=== PATIENT | female | born 1995 | race Caucasian/White ===

== ENCOUNTER 2017-10-11 17:19 | Emergency (ER) | payer MEDICAID, SELFPAY ==
[2017-10-11 17:42] VITALS: BP 150/90; PULSE 86; RESP 20; TEMP 36.9; O2SAT 99; BMI 61.8
--- NOTE | 2017-10-11 18:01 | HMH.EDUTC ---
[facility] [place] Disposition Clinical Impression: Gastroenteritis Disposition: Home, Self-Care Condition on Discharge: Good Instructions: DI for Vomiting -- Adult, Diarrhea, DI for Nausea -- Adult, Loperamide Additional Instructions: ? Drink extra fluids with and between meals. If you have difficulty drinking, try very small amounts of water or suck on ice chips. ? Avoid fruit juices, as these do not replace minerals and can actually increase diarrhea. ? Children and adults can use sports drinks to replenish electrolytes. Younger children and infants should use products formulated for children, like oral rehydration solutions. ? Eat food in small amounts and let your stomach recover. ? Get lots of rest. You may feel tired or weak. ? Check with your doctor before taking medications or giving them to children. Never give aspirin to children or teenagers with a viral illness. This can cause Fred syndrome, a potentially life-threatening condition. Follow up with family doctor after collecting stool specimen and taking to lab for results Straight to ER if any life threatening symptom Prescriptions: Dicyclomine HCl [Bentyl 10mg capsule] 10 mg PO QID #20 cap Ondansetron [Zofran 4mg ODT] 4 mg PO Q8H #12 tab.rapdis Referrals: Albin Long MD [Primary Care Provider] - (24-48 hours or sooner if no improvement in symptoms) Forms: Work/School Release Time of Disposition: 18:22 Medical Decision Making - Medical Records Medical records reviewed: Yes: I reviewed the patient's medical records. - Bahman Inquiry Pt receiving controlled substance: No Bahman was queried for this patient: No Vital Signs: 10/11/17 17:42 Temperature 98.5 F Temperature Source Temporal Artery Scan Pulse Rate [Right] 86 Respiratory Rate 20 Blood Pressure [Right Arm] 150/90 Blood Pressure Mean [Right Arm] 110 Blood Pressure Source [Right Arm] Automatic Cuff Blood Pressure Position [Right Arm] Sitting 02 Sat by Pulse Oximetry 99 Oxygen Delivery Method Room Air - Reevaluation(s) Time: 18:16 Reevaluation #1: Patient give out patient order along with collection cup to collect loose stool and bring to lab advised her to then follow up with family doctor 24-48 hours after giving to lab for results. Patient advised for next 24 hours no fried or spicy foods Prefer her to drink gatoraid for next 24 hours to rehydrate her body then progress to brat diet for 24 hours then slowely intregrated foods. [facility] [place] HPI - General Stated complaint: v/d Time Seen by Provider: 10/11/17 18:00 Mode of Arrival: Ambulatory Source of Information: Patient Limitations: No Limitations Description of Symptoms (Recalled from Triage Doc. 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 - Related Data Previous Rx's Medication Instructions Recorded Dicyclomine HCl [Bentyl 10mg 10 mg PO QID #20 cap 10/11/17 capsule] Ondansetron [Zofran 4mg ODT] 4 mg PO Q8H #12 tab.rapdis 10/11/17 Allergies Allergy/AdvReac Type Severity Reaction Status Date / Time No Known Allergies Allergy Verified 10/11/17 17:45 - Worker's Comp Is this a Worker's Comp case?: No [facility] History I have reviewed the patient's past medical history: Yes - Social History Alcohol Intake: never - Psychiatric History Expresses thoughts of harming self/others: None Suicide Plan Description: No Plan ROS Obtained: Yes All systems reviewed & no additional co
--- NOTE | 2017-10-11 18:13 | ED_ITS ---
[facility] [place] Disposition Clinical Impression: Gastroenteritis Disposition: Home, Self-Care Condition on Discharge: Good Instructions: DI for Vomiting -- Adult, Diarrhea, DI for Nausea -- Adult, Loperamide Additional Instructions: ? Drink extra fluids with and between meals. If you have difficulty drinking, try very small amounts of water or suck on ice chips. ? Avoid fruit juices, as these do not replace minerals and can actually increase diarrhea. ? Children and adults can use sports drinks to replenish electrolytes. Younger children and infants should use products formulated for children, like oral rehydration solutions. ? Eat food in small amounts and let your stomach recover. ? Get lots of rest. You may feel tired or weak. ? Check with your doctor before taking medications or giving them to children. Never give aspirin to children or teenagers with a viral illness. This can cause Felecia?s syndrome, a potentially life-threatening condition. Follow up with family doctor after collecting stool specimen and taking to lab for results Straight to ER if any life threatening symptom Prescriptions: Dicyclomine HCl [Bentyl 10mg capsule] 10 mg PO QID #20 cap Ondansetron [Zofran 4mg ODT] 4 mg PO Q8H #12 tab.rapdis Referrals: Albin Long MD [Primary Care Provider] - (24-48 hours or sooner if no improvement in symptoms) Forms: Work/School Release Time of Disposition: 18:22 Medical Decision Making - Medical Records Medical records reviewed: Yes: I reviewed the patient's medical records. - Bahman Inquiry Pt receiving controlled substance: No Bahman was queried for this patient: No Vital Signs: 10/11/17 17:42 Temperature 98.5 F Temperature Source Temporal Artery Scan Pulse Rate [Right] 86 Respiratory Rate 20 Blood Pressure [Right Arm] 150/90 Blood Pressure Mean [Right Arm] 110 Blood Pressure Source [Right Arm] Automatic Cuff Blood Pressure Position [Right Arm] Sitting 02 Sat by Pulse Oximetry 99 Oxygen Delivery Method Room Air - Reevaluation(s) Time: 18:16 Reevaluation #1: Patient give out patient order along with collection cup to collect loose stool and bring to lab advised her to then follow up with family doctor 24-48 hours after giving to lab for results. Patient advised for next 24 hours no fried or spicy foods Prefer her to drink gatoraid for next 24 hours to rehydrate her body then progress to brat diet for 24 hours then slowely intregrated foods. [facility] [place] HPI - General Stated complaint: v/d Time Seen by Provider: 10/11/17 18:00 Mode of Arrival: Ambulatory Source of Information: Patient Limitations: No Limitations Description of Symptoms (Recalled from Triage Doc. 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
[2017-10-11 18:25] VITALS: BP 150/90; PULSE 86; RESP 20; TEMP 36.9
== END 2017-10-11 18:31 | disposition home or self-care (01) ==
PROVIDERS: Emergency Provider Nurse Practitioner; Family Provider Family Medicine; PCP Family Medicine
DX: K52.9 Noninfective gastroenteritis and colitis, unspecified (principal)
CPT/HCPCS: 99201

== ENCOUNTER 2017-10-12 22:05 | Emergency (ER) | payer MEDICAID, SELFPAY ==
[2017-10-12 22:10] VITALS: BP 164/97; PULSE 109; RESP 16; TEMP 36.7; O2SAT 96; BMI 61.3
--- NOTE | 2017-10-12 22:19 | HMH.EDNVD ---
ED Disposition Clinical Impression: Abdominal pain Qualifiers: Abdominal location: right upper quadrant Qualified Code(s): R10.11 - Right upper quadrant pain Disposition: Home, Self-Care Condition on Discharge: Good Instructions: DI for Nausea -- Adult Additional Instructions: call pcp for follow up and consider gb eval Referrals: Albin Long MD [Primary Care Provider] - - Critical Care Critical Care Time: No Attestation: On , the high probability of a clinically significant, sudden or life threatening deterioration of the following system(s) required my full and direct attention, intervention and personal management. The time I documented below is in addition to time spent performing reported procedures but includes the following listed in this critical care notation. Medical Decision Making - Medical Records Medical records reviewed: Yes: I reviewed the patient's medical records. - Bahman Inquiry Pt receiving controlled substance: No Vital Signs: 10/12/17 22:10 10/12/17 23:25 Temperature 98.1 F Temperature Source Oral Pulse Rate [Right Brachial] 109 H 87 Respiratory Rate 16 16 Blood Pressure [Right Arm] 164/97 144/72 Blood Pressure Mean [Right Arm] 119 96 02 Sat by Pulse Oximetry 96 99 Oxygen Delivery Method Room Air Room Air - Lab Data Lab results reviewed: Yes: I reviewed the patient's lab results. Lab Results 10/12/17 22:30: WBC 9.0, RBC 4.94, Hgb 13.4, Hct 42.7, MCV 86.4, MCH 27.1, MCHC 31.4 L, RDW 13.2, Plt Count 348, MPV 7.5, Neut % (Auto) 66.4, Lymph % (Auto) 24.4, [place] % (Auto) 5.4, Eos % (Auto) 3.6, Baso % (Auto) 0.2, Neut # (Auto) 6.0, Lymph # (Auto) 2.2, [place] # (Auto) 0.5, Eos # (Auto) 0.3, Baso # (Auto) 0.0 10/12/17 22:30: Sodium 138, Potassium 4.1, Chloride 104, Carbon Dioxide 28, Anion Gap 10.1, BUN 14, Creatinine 0.57, Estimated Creat Clear 146, Estimated GFR 134, Est GFR ( Amer) 162, Glucose 89, Calcium 8.9, Total Bilirubin 0.1 L, AST 15, ALT 18, Alkaline Phosphatase 92, Total Protein 7.1, Albumin 3.4, Globulin 3.7 H, Albumin/Globulin Ratio 0.9 L, Amylase 32, Lipase 151 10/12/17 22:40: Urine Color Yellow, Urine Appearance Clear, Urine pH 6.0, Ur Specific [place] 1.025, Urine Protein Negative, Urine Glucose (UA) Negative, Urine Ketones Negative, Urine Blood Negative, Urine Nitrate Negative, Urine Bilirubin Negative, Urine Urobilinogen 0.2, Ur Leukocyte Esterase Negative, Urine WBC 3-5, Ur Squamous Epith Cells Occasional, Urine Bacteria Trace 10/12/17 22:40: Urine HCG, Qual Negative Result diagrams: 10/12/17 22:30 10/12/17 22:30 Orders (Tests/Meds): ED MEDICATIONS Discontinued Medications Generic Name Dose Route Start Last Admin Trade Name Freq PRN Reason Stop Dose Admin Sodium Chloride 1,000 mls @ 999 mls/hr 10/12/17 22:30 10/12/17 22:33 Sod Chlor 0.9% 1000ml Bag IV 10/12/17 23:30 999 mls/hr .Q1H1M NUNO Administration Ketorolac Tromethamine 30 mg 10/12/17 22:29 10/12/17 22:33 Toradol 30mg/Ml Vial IV 10/12/17 22:30 30 mg ONCE ONE Administration Ondansetron HCl 4 mg 10/12/17 22:29 10/12/17 22:33 Zofran 4mg/2ml Vial IV 10/12/17 22:30 4 mg ONCE ONE Administration ORDERS Category Date Time Status CT abdomen wo con Stat Cat Scan 10/12/17 22:22 Taken - CT Data CT Scan: Abdomen, Pelvis Time Received: 23:[address] Reviewed: Yes: I have viewed the radiologist's interpretation Preliminary Findings: Normal/NAD Nausea/Vomiting/Diarrhea HPI - General Chief complaint: Nausea/Vomiting/Diarrhea Stated complaint: Right Side Pain and vomiting Time Seen by Provider: 10/12/17 22:19 Mode of Arrival: Ambulatory Source of Information: Patient, Relative, Medical Record Limitations: No Limitations Description of Symptoms (Recalled from ER Triage Doc. by RN): N/V WITH RUQ PAIN THAT STATRED YESTERDAY - History of Present Illness HPI Narrative: tender rt upper abd pain with nausea MD complaint: nausea, vomiting, abdominal
--- NOTE | 2017-10-12 22:22 | CT_ITS ---
CT abdomen wo con CLINICAL INDICATION: Right upper quadrant pain ITS.REASON: PAIN ORDERING PHYSICIAN: Charlie Mejia MD PATIENT AGE: 22 years COMPARISON: None TECHNIQUE: Axial images obtained with sagittal and coronal reformats. All CT scans at the facility use one or more dose reduction, viz: automated exposure control; ma/kV adjustment per patient size (including targeted exams where dose is matched to indication; i.e. head); or iterative reconstruction technique. PROCEDURE: Oral Contrast: None IV Contrast: None . FINDINGS: Lung bases are clear. The liver, spleen, adrenal glands, pancreas and kidneys have an unremarkable unenhanced CT appearance. Gallbladder is decompressed. No radio opaque stones are evident. No intestinal obstruction or free air. No evidence of appendicitis or diverticulitis. No pelvic mass or focal inflammatory change or abnormal fluid collection. No acute bony anomalies. IMPRESSION: No acute abdominal or pelvic findings.
[2017-10-12 22:43] LABS: Basophils % 0.2 % (0.1-2.0); Eosinophils # 0.3 K/mm3 (0.0-0.4); Eosinophils % 3.6 % (0.1-12.0); Hematocrit 42.7 % (37.0-47.0); Hemoglobin 13.4 g/dL (12.2-16.2); Lymphocytes # 2.2 K/mm3 (0.7-4.5); Lymphocytes % 24.4 K/mm3 (10-50); Mean Corpuscular HGB Conc 31.4 g/dL (31.8-35.4); Mean Corpuscular Hemoglobin 27.1 pg (27.0-31.2); Mean Corpuscular Volume 86.4 fl (81-99); Mean Platelet Volume 7.5 fl (7.4-10.4); Monocytes # 0.5 K/mm3 (0.1-1.0); Monocytes % 5.4 % (1.7-9.3); Neutrophils % 66.4 % (37.0-80.0); Platelet Count 348 K/mm3 (142-424); Red Blood Count 4.94 M/mm3 (4.20-5.40); Red Cell Distribution Width 13.2 % (11.5-17.5)
[2017-10-12 22:48] LABS: Appearance,Urine CLEAR (Clear); Bilirubin,Urine Negative (Negative); Blood, Urine Negative (Negative); Color,Urine YELLOW (Yellow); Glucose,Urine (UA) Negative (Negative); Ketones,Urine Negative (Negative); Leukocyte Esterase,Urine Negative (Negative); Microscopic, Urine URINE MICROSCOPIC (MICROSCOPIC); Nitrate,Urine Negative (Negative); Protein,Urine Negative (Negative); Specific Gravity, Urine 1.025 (1.005-1.030); Urobilinogen,Urine 0.2 EU/dl (0.2)
[2017-10-12 22:49] LABS: Urine Pregnancy, HCG Qual. Negative (Negative)
--- NOTE | 2017-10-12 22:57 | PC.NURSE ---
PT TO CT AT THIS TIME
[2017-10-12 23:00] LABS: Alanine Aminotransferase 18 U/L (12-78); Albumin Level 3.4 gm/dL (3.4-5.0); Albumin/Globulin Ratio 0.9 (1.1-1.8); Alkaline Phosphatase 92 U/L (46-116); Amylase 32 U/L (25-125); Anion Gap 10.1 mEq/L (5-15); Aspartate Amino Transferase 15 U/L (15-37); Bilirubin,Total 0.1 mg/dL (0.2-1.0); Blood Urea Nitrogen 14 mg/dL (7-18); Calcium 8.9 mg/dL (8.5-10.1); Carbon Dioxide 28 mmol/L (21.0-32.0); Chloride 104 mmol/L (98-107); Creatinine Clearance Estimated 146 mL/min (0-300); Creatinine,Serum 0.57 mg/dL (0.55-1.02); Estimated Glomerular Filt Rate 134 ml/min (>60); GFR (African American) 162 ML/MIN (>60); Globulin 3.7 gm/dl (1.3-3.2); Glucose 89 mg/dL (74-106); Lipase 151 u/L (73-393); Potassium 4.1 mmoL/L (3.5-5.1); Sodium 138 mmol/L (136-145); Total Protein,Serum 7.1 gm/dL (6.4-8.2)
--- NOTE | 2017-10-12 23:13 | PC.NURSE ---
PT BACK FROM CT AT THIS TIME.
[2017-10-12 23:17] LABS: Bacteria,Urine Trace /lpf; Squamous Epithelial Cell,Urine Occasional #/hpf (0-5)
[2017-10-12 23:25] VITALS: BP 144/72; PULSE 87; RESP 16; O2SAT 99
[2017-10-13 00:09] VITALS: BP 134/68; PULSE 68; RESP 14; TEMP 37.1; O2SAT 99
== END 2017-10-13 00:11 | disposition home or self-care (01) ==
PROVIDERS: Emergency Provider Emergency Medicine; Family Provider Family Medicine; PCP Family Medicine
DX: R10.11 Right upper quadrant pain (principal); F41.8 Other specified anxiety disorders
CPT/HCPCS: 74150; 80053; 81001; 81025; 82150; 83690; 85025; 96365; 96375; 99283; J2405

== ENCOUNTER → 2017-12-07 11:30 | Outpatient (CLI) | payer MEDICAID, SELFPAY ==
--- NOTE | 2017-12-07 11:38 | US_ITS ---
US abdomen limited HISTORY: Right upper quadrant pain with vomiting ITS.REASON: BILIARY COLIC ORDERING PHYSICIAN: Albin Long MD PATIENT AGE: 22 years COMPARISON: None FINDINGS: Pancreas: Unremarkable. Liver: Unremarkable. Right kidney: Unremarkable. Gallbladder: Unremarkable. No stones, gallbladder wall thickening, pericholecystic fluid, or biliary dilatation. Common bile duct is normal at 2 mm. IMPRESSION: Negative right upper quadrant ultrasound
== END ==
PROVIDERS: PCP Family Medicine; Visit Provider Family Medicine
DX: K80.50 Calculus of bile duct without cholangitis or cholecystitis without obstruction (principal)
CPT/HCPCS: 76705

== ENCOUNTER 2020-06-19 19:19 | Emergency (ER) | payer MEDICAID, SELFPAY ==
[2020-06-19 19:29] VITALS: BP 147/91; PULSE 87; RESP 18; TEMP 36.7; O2SAT 99; BMI 64.8
--- NOTE | 2020-06-19 19:30 | XR_ITS ---
PROCEDURE: XR WRIST RT MIN 3V CLINICAL INDICATION: FALL Pain COMPARISON: CR WRR3 WRIST-3 VIEWS-RT from 12/20/2016 FINDINGS: No fracture or dislocation. No lytic or blastic change. There is normal mineralization. There is mild prominence the space between the scaphoid and lunate Other findings:None. IMPRESSION: Mild prominence of the scapholunate space which could be seen with ligamentous injury. Please correlate with findings. Dictated by: Chago Gong MD 06/20/2020 05:57 Chago Gong MD in [facility] 06/20/2020 05:57
--- NOTE | 2020-06-19 19:30 | XR_ITS ---
PROCEDURE: XR HAND RT MIN 3V CLINICAL INDICATION: FALL Pain COMPARISON: No exams were available for comparison FINDINGS: No fracture or dislocation. No lytic or blastic change. There is normal mineralization. The joint spaces are well-preserved. No significant degenerative/arthritic changes. No erosive changes evident. Other findings:None. IMPRESSION: No acute findings. Dictated by: Chago Gong MD 06/20/2020 05:58 Chago Gong MD in [facility] 06/20/2020 05:58
--- NOTE | 2020-06-19 19:30 | XR_ITS ---
PROCEDURE: XR FOREARM RT 2V CLINICAL INDICATION: FALL Posttraumatic pain COMPARISON: No exams were available for comparison FINDINGS: No fracture or dislocation. No lytic or blastic change. There is normal mineralization. The joint spaces are well-preserved. No significant degenerative/arthritic changes. No erosive changes evident. Other findings:None. IMPRESSION: No acute findings. Dictated by: Chago Gong MD 06/20/2020 05:56 Chago Gong MD in [facility] 06/20/2020 05:56
--- NOTE | 2020-06-19 20:21 | HMH.EDUTC ---
[facility] [place] Disposition Clinical Impression: Right wrist sprain Qualifiers: Encounter type: initial encounter Qualified Code(s): S63.501A - Unspecified sprain of right wrist, initial encounter Sprain of right hand Qualifiers: Encounter type: initial encounter Qualified Code(s): S63.91XA - Sprain of unspecified part of right wrist and hand, initial encounter Disposition: Home, Self-Care Condition on Discharge: Good Instructions: Wrist Sprain, DI for Wrist Sprain Additional Instructions: Rest the extremity, apply ice for 15 minutes as tolerated three or four times per day, Elevate the extremity as tolerated while you are resting. Take ibuprofen for pain. I sent in a prescription to your pharmacy. Follow up with Dr. Walker (orthopedics). Sometimes there can be fractures that don't show up well on the first set of x-rays. So, you should follow up if you continue to have symptoms. I put in a referral but you need to call his office and schedule an appointment. Follow up with your regular doctor. GO TO THE ER FOR ANY WORSENING SYMPTOMS Prescriptions: Ibuprofen [Ibuprofen 600mg Tablet] 600 mg PO Q6HP PRN #30 tab PRN Reason: Mild Pain Transmission Status: Received by [facility] #[id number] Referrals: Radha Martinez [Primary Care Provider] - Garfield Walker MD [Staff Physician] - Time of Disposition: 20:27 Medical Decision Making - Medical Records Medical records reviewed: No: I reviewed the patient's medical records. - Bahman Inquiry Pt receiving controlled substance: No Vital Signs: 06/19/20 19:29 06/19/20 20:40 Temperature 98.1 F 98.1 F Temperature Source Oral Oral Pulse Rate 87 Pulse Rate [Radial] 87 Respiratory Rate 18 18 Blood Pressure 147/91 H Blood Pressure [Right Arm] 147/91 H Blood Pressure Mean [Right Arm] 109 Blood Pressure Source Automatic Cuff Blood Pressure Source [Right Arm] Automatic Cuff Blood Pressure Position Sitting Blood Pressure Position [Right Arm] Sitting 02 Sat by Pulse Oximetry 99 Oxygen Delivery Method Room Air Room Air Orders (Tests/Meds): ORDERS Category Date Time Status XR forearm RT 2V Stat Exams 06/19/20 19:30 Taken XR hand RT min 3V Stat Exams 06/19/20 19:30 Taken XR wrist RT min 3V Stat Exams 06/19/20 19:30 Taken [facility] [place] HPI - General Stated complaint: AO 06/19 1900 FELL INJURED R hAND Time Seen by Provider: 06/19/20 20:21 Mode of Arrival: Ambulatory Source of Information: Patient Limitations: No Limitations Description of Symptoms (Recalled from Triage Doc. 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 She came down on her right hand and wrist. Since then she has been having right wrist and forearm pain. The pain is worse with moving the wrist and hand. - Related Data Home Medications Medication Instructions Recorded Confirmed sertraline 50 mg tablet 100 mg PO DAILY tab 05/14/18 03/13/19 trazodone 100 mg tablet 100 mg PO DAILY 05/14/18 03/13/19 Divalproex Sodium [Depakote 250mg 250 mg PO DAILY 02/05/19 03/13/19 (Delayed-Release) tablet] Naproxen [Naprosyn 500mg tablet] 500 mg PO BID 03/13/19 03/13/19 Previous Rx's Medication Instructions Recorded Azithromycin [Z-Jameel 250mg Tab*] 250 mg PO UD DOSE PK #6 tab 05/29/19 Brompheniramine/Pseudoephed/Dm 5 ml PO Q6HP PRN #240 syrup 05/29/19 [Bromfed Dm Cough Syrup] predniSONE [Prednisone 20mg 20 mg PO BID 4 Days #8 tab 05/29/19 Tab] Ondansetron [Zofran 4mg ODT] 4 mg PO Q8HP PRN #20 tab.rapdis 06/05/19 Ibuprofen [Ibuprofen 600mg 600 mg PO Q6HP PRN #30 tab 06/19/20 Tablet] Allergies Allergy/
[2020-06-19 20:40] VITALS: BP 147/91; PULSE 87; RESP 18; TEMP 36.7; O2SAT 99
== END 2020-06-19 20:41 | disposition home or self-care (01) ==
PROVIDERS: Emergency Provider Nurse Practitioner Family; PCP Pediatrics
DX: S63.501A Unspecified sprain of right wrist, initial encounter (principal); W10.9XXA Fall (on) (from) unspecified stairs and steps, initial encounter; Y92.9 Unspecified place or not applicable; Z79.899 Other long term (current) drug therapy; F12.10 Cannabis abuse, uncomplicated
CPT/HCPCS: 73090; 73110; 73130; 99201

== ENCOUNTER 2020-08-03 12:06 | Emergency (ER) | payer MEDICAID, SELFPAY ==
[2020-08-03 12:25] VITALS: BP 146/88; PULSE 89; RESP 14; TEMP 36.4; O2SAT 97; BMI 65.3
--- NOTE | 2020-08-03 12:40 | HMH.EDUTC ---
[facility] [place] Clinical Impression: Encounter for laboratory testing for COVID-19 virus Disposition: Home, Self-Care Condition on Discharge: Good Instructions: DI for COVID-19 (Suspected or Confirmed ), Coronavirus Disease 2019, Preventing the Spread of Coronavirus Discharge Instructions Additional Instructions: *Monitor Temp, Over the counter Motrin or Tylenol as directed/as needed Tylenol every 4 hours and Motrin every 6 hours (as long as your family doctor has told you that you can take it) for fever or pain. and straight to ER if unable to lower temp less than 101.0 after medication given Follow up IMMEDIATELY for new or worsening symptoms or no Noticeable improvement over the next 48-72 hours. 911 for difficulty breathing or swallowing You were tested for today for COVID19 your test result should be back in the next 24-48 hours, you may call to the [facility] to see if your test results are back in the next 48 hours [phone] [facility] hours are 9am-9pm You was given a handout with instructions for Self Quarantine and Self isolation for while you wait on test results and what to do if they are positive If you are positive the Health Dept will be contacting you also Referrals: PCP,No [Primary Care Provider] - As needed Forms: Work/School Release Time of Disposition: 12:45 Medical Decision Making - Bahman Inquiry Pt receiving controlled substance: No Bahman was queried for this patient: No Vital Signs: 08/03/20 12:25 Temperature 97.6 F Temperature Source Oral Pulse Rate [Right Brachial] 89 Respiratory Rate 14 Blood Pressure [Right Arm] 146/88 H Blood Pressure Mean [Right Arm] 107 Blood Pressure Source [Right Arm] Automatic Cuff Blood Pressure Position [Right Arm] Sitting 02 Sat by Pulse Oximetry 97 Oxygen Delivery Method Room Air Orders (Tests/Meds): ORDERS Category Date Time Status Covid-19 Nasal PCR Sendout P&C Routine Lab 08/03/20 12:20 Received [facility] [place] - General Stated complaint: covid test Time Seen by Provider: 08/03/20 12:41 Mode of Arrival: Ambulatory Source of Information: Patient Limitations: No Limitations Description of Symptoms (Recalled from Triage Doc. by RN): PATIENT NEEDING COVID TEST FOR WORK D/T EXPOSURE. DENIES SYMPTOMS HEENT Symptoms (Recalled from RN notes): No Resp Symptoms (Recalled from RN notes): No Skin Symptoms (Recalled from RN notes): No MS Symptoms (Recalled from RN notes): No Functional Status (Recalled from RN notes): WNL - History of Present Illness Provider Complaint: Patient state that her roommate recently tested positive for COVID States that she has stayed away from her but her work wanted her to get tested for COVID before returning to work States that she is not having any symptoms - Related Data Home Medications Medication Instructions Recorded Confirmed sertraline 50 mg tablet 100 mg PO DAILY tab 05/14/18 03/13/19 trazodone 100 mg tablet 100 mg PO DAILY 05/14/18 03/13/19 Divalproex Sodium [Depakote 250mg 250 mg PO DAILY 02/05/19 03/13/19 (Delayed-Release) tablet] Naproxen [Naprosyn 500mg tablet] 500 mg PO BID 03/13/19 03/13/19 Previous Rx's Medication Instructions Recorded Azithromycin [Z-Jameel 250mg Tab*] 250 mg PO UD DOSE PK #6 tab 05/29/19 Brompheniramine/Pseudoephed/Dm 5 ml PO Q6HP PRN #240 syrup 05/29/19 [Bromfed Dm Cough Syrup] predniSONE [Prednisone 20mg 20 mg PO BID 4 Days #8 tab 05/29/19 Tab] Ondansetron [Zofran 4mg ODT] 4 mg PO Q8HP PRN #20 tab.rapdis 06/05/19 Ibuprofen [Ibuprofen 600mg 600 mg PO Q6HP PRN #30 tab 06/19/20 Tablet] Allergies Allergy/AdvReac Type Severity Reaction Status Date / Time No Known Allergies Allergy Verified 03/13/19 02:42 - Worker's Comp Is this a Worker's Comp case?: No [facility] History - Hepatitis A Screen Drug use history?: No High risk sexual behaviors?: No History of sexually transmitted infection?: No Currently employed?: No Childcare worker?: No Do you
[2020-08-03 12:52] VITALS: BP 146/88; PULSE 89; RESP 14; TEMP 36.4; O2SAT 97
[2020-08-04 09:50] LABS: Covid-19 Nasal PCR Sendout P&C NEGATIVE
== END 2020-08-03 13:03 | disposition home or self-care (01) ==
PROVIDERS: Emergency Provider Nurse Practitioner
DX: Z20.822 Contact with and (suspected) exposure to COVID-19 (principal); Z87.891 Personal history of nicotine dependence
CPT/HCPCS: 99202; G0463; U0004

== ENCOUNTER 2020-11-15 19:58 | Emergency (ER) | payer MEDICAID, SELFPAY ==
[2020-11-15 20:10] VITALS: BP 149/90; PULSE 87; RESP 17; TEMP 37; O2SAT 98; BMI 64.5
--- NOTE | 2020-11-15 20:36 | HMH.EDUTC ---
[facility] [place] Clinical Impression: Low back pain with sciatica Qualifiers: Chronicity: unspecified Back pain laterality: left Sciatica laterality: sciatica of left side Qualified Code(s): M54.42 - Lumbago with sciatica, left side Disposition: Home, Self-Care Condition on Discharge: Good Instructions: DI for Low Back Pain, DI for Sciatica, DI for Back Pain With Sciatica Additional Instructions: *Ibuprofen as directed on package with meal as needed for pain/inflammation if your Doctor has told you that you can take it *Not additional anti-inflammatory like motrin, aleve, advil with the above amount of ibuprofen. You can still take Tylenol every 4 hours as needed if you need something else for pain *Ice 20 minutes every 2 hours for the first 48 hours after the initial injury followed by moist heat every 20 minutes 3-4 times a day to affected area *Muscle relaxer every 8 hours as needed for muscle spasms but remember, it WILL cause drowsiness You cannot take it and drive, operate machinery or care for small children. *Keep this area active, no movement leads to more stiffness, However take it easy and avoid heavy lifting pushing or pulling *Follow up with you family doctor if no improvement for further treatment Prescriptions: methylPREDNISolone [Medrol 4mg tab] 4 mg PO DIRECTED #21 tab Transmission Status: Received by [facility] #[id number] methocarbamoL [Methocarbamol 500mg Tablet] 500 mg PO BID PRN #10 tab PRN Reason: Muscle Spasm Transmission Status: Received by [facility] #[id number] Referrals: Cruz Sosa [Primary Care Provider] - As needed Time of Disposition: 21:04 Medical Decision Making - Bahman Inquiry Pt receiving controlled substance: No Bahman was queried for this patient: No Vital Signs: 11/15/20 20:10 11/15/20 21:01 Temperature 98.6 F 98.6 F Temperature Source Oral Pulse Rate 87 Pulse Rate [Right Brachial] 87 Respiratory Rate 17 17 Blood Pressure 149/90 H Blood Pressure [Right Arm] 149/90 H Blood Pressure Mean [Right Arm] 109 Blood Pressure Source [Right Arm] Automatic Cuff Blood Pressure Position [Right Arm] Sitting 02 Sat by Pulse Oximetry 98 Oxygen Delivery Method Room Air Orders (Tests/Meds): ED MEDICATIONS Discontinued Medications Generic Name Dose Route Start Last Admin Trade Name Freq PRN Reason Stop Dose Admin Methylprednisolone Sodium Succinate 125 mg 11/15/20 20:44 11/15/20 20:50 Methylprednisolone Sod Succ 125mg Vial IM 11/15/20 20:45 125 mg ONCE ONE Administration Medical Decision Narrative: Patient denies chance of states that she has an IUD Reports that she has taken soluMedrol in the past without complication or reactions [facility] [place] - General Stated complaint: lower back hurts Time Seen by Provider: 11/15/20 20:36 Mode of Arrival: Ambulatory Source of Information: Patient Limitations: No Limitations Description of Symptoms (Recalled from Triage Doc. by RN): PATIENT C/O LOWER BACK PAIN THAT RADIATES DOWN LEFT LEG SINCE YESTERDAY HEENT Symptoms (Recalled from RN notes): No Resp Symptoms (Recalled from RN notes): No Skin Symptoms (Recalled from RN notes): No MS Symptoms (Recalled from RN notes): Yes Functional Status (Recalled from RN notes): WNL - History of Present Illness Provider Complaint: Patient state that she has had sciatica in the past States that for the last several days she has been having pain in her left lower back that is radiating down her left buttock area into left upper leg State that she has been taking over the counter Motrin but not helping much today States that tonight she was still having achy like pain shooting down into her leg so she came in Denies loss of control of bowel or bladder - Related Data Previous Rx's Medication Instructions Recorded methocarbamoL [Methocarbamol 500mg 500 mg PO BID PRN #10 tab 11/15/20 Tablet] methylPREDNISolone [Medrol 4mg 4 mg PO DIRECTED
[2020-11-15 21:01] VITALS: BP 149/90; PULSE 87; RESP 17; TEMP 37; O2SAT 98
== END 2020-11-15 21:05 | disposition home or self-care (01) ==
PROVIDERS: Emergency Provider Nurse Practitioner; PCP Pediatrics
DX: M54.42 Lumbago with sciatica, left side (principal)
CPT/HCPCS: 99202; G0463

== ENCOUNTER 2021-02-04 13:56 | Emergency (ER) | payer MEDICAID, SELFPAY ==
[2021-02-04 14:51] VITALS: BP 157/94; PULSE 111; RESP 17; TEMP 36.6; O2SAT 100; BMI 69.4
--- NOTE | 2021-02-04 15:21 | HMH.EDUTC ---
[facility] – [place] Clinical Impression: Sinusitis Qualifiers: Sinusitis location: unspecified location Chronicity: acute Recurrence: non-recurrent Qualified Code(s): J01.90 - Acute sinusitis, unspecified Disposition: Home, Self-Care Condition on Discharge: Good Instructions: Sinusitis, DI for Sinusitis Additional Instructions: Drink plenty of fluids. Take tylenol or ibuprofen for pain or fever. Take the medications as directed. Follow up with your regular doctor. GO TO THE ER FOR ANY WORSENING SYMPTOMS Prescriptions: Promethazine/Dextromethorphan [Promethazine-Dm Syrup] 5 ml PO Q6HP PRN #240 syrup PRN Reason: Cough Transmission Status: Received by [facility] #[id number] Amoxicillin/Potassium Clav [Augmentin 875-125 Tablet] 1 tab PO Q12H 10 Days #20 tab Transmission Status: Received by [facility] # methylPREDNISolone [Medrol] 4 mg PO DIRECTED 6 Days #21 tab.[email or web address] Transmission Status: Received by [facility] # Referrals: Cruz Sosa [Primary Care Provider] - Forms: Work/School Release Time of Disposition: 15:24 Medical Decision Making - Medical Records Medical records reviewed: No: I reviewed the patient's medical records. - Bahman Inquiry Pt receiving controlled substance: No Vital Signs: 02/04/21 14:51 02/04/21 15:44 Temperature 98 F 98 F Temperature Source Temporal Artery Scan Pulse Rate 115 H Pulse Rate [Left] 111 H Respiratory Rate 17 18 Blood Pressure 162/92 H Blood Pressure [Right Arm] 157/94 H Blood Pressure Mean [Right Arm] 115 02 Sat by Pulse Oximetry 100 [facility] [place] HPI - General Stated complaint: congestion both ear pain Time Seen by Provider: 02/04/21 15:10 Mode of Arrival: Ambulatory Source of Information: Patient Limitations: No Limitations Description of Symptoms (Recalled from Triage Doc. by RN): pt c/o bilateral ear aches, face tenderness, nasal congestion, and green mucous. she says she has a sinus infection. HEENT Symptoms (Recalled from RN notes): Yes (sinus tenderness, congestion and ear aches.) Resp Symptoms (Recalled from RN notes): No Skin Symptoms (Recalled from RN notes): No MS Symptoms (Recalled from RN notes): No Functional Status (Recalled from RN notes): na - History of Present Illness Provider Complaint: She c/o 3 days of sinus pressure and pain. She states that she has a sinus infection. She gets them kind of frequently. She denies any fever/chills/body aches. - Related Data Previous Rx's Medication Instructions Recorded methocarbamoL [Methocarbamol 500mg 500 mg PO BID PRN #10 tab 11/15/20 Tablet] methylPREDNISolone [Medrol 4mg 4 mg PO DIRECTED #21 tab 11/15/20 tab] Amoxicillin/Potassium Clav 1 tab PO Q12H 10 Days #20 tab 02/04/21 [Augmentin 875-125 Tablet] Promethazine/Dextromethorphan 5 ml PO Q6HP PRN #240 syrup 02/04/21 [Promethazine-Dm Syrup] methylPREDNISolone [Medrol] 4 mg PO DIRECTED 6 Days #21 02/04/21 tab.[email or web address] Allergies Allergy/AdvReac Type Severity Reaction Status Date / Time No Known Allergies Allergy Verified 02/04/21 14:56 - Worker's Comp Is this a Worker's Comp case?: No [facility] History - Hepatitis A Screen Drug use history?: No High risk sexual behaviors?: No History of sexually transmitted infection?: No Currently employed?: No Childcare worker?: No Do you have indoor plumbing?: Yes Do you have electricity?: Yes Attestation statement:: This patient has been screened for Hepatitis A risk factors. I have reviewed the patient's past medical history: Yes 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: Denies:: Cancer, Diabetes Mellitus Type 1, Diabetes Mellitus Type 2, Hypertension, Migraine, MRSA, Seizures Other 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: Reports: Other Laterality Cases: Bilateral: Tonsillectomy Other Surgeries: Yes: Cholecystectomy, Other Amputation: No Fractures: No - Social History Smoking Status: Former smoker Alcohol Intake: never Alcohol Intake Frequency:: a few kristie
[2021-02-04 15:44] VITALS: BP 162/92; PULSE 115; RESP 18; TEMP 36.6
== END 2021-02-04 15:45 | disposition home or self-care (01) ==
LOC: ER 14:01 → UTC 14:07
PROVIDERS: Emergency Provider Nurse Practitioner Family; PCP Pediatrics
DX: J01.90 Acute sinusitis, unspecified (principal); Z87.891 Personal history of nicotine dependence
CPT/HCPCS: 99202; G0463

== ENCOUNTER 2021-06-17 11:24 | Emergency (ER) | payer MEDICAID, SELFPAY ==
[2021-06-17 12:00] VITALS: BP 135/91; PULSE 94; RESP 19; TEMP 37.1; O2SAT 97; BMI 69.4
--- NOTE | 2021-06-17 12:35 | HMH.EDUTC ---
[facility] – [place] Dis[place] Clinical Impression: Vomiting and diarrhea Disposition: Home, Self-Care Condition on Discharge: Good Instructions: Nausea and Vomiting-Adult, Diarrhea, Ondansetron Additional Instructions: Drink extra fluids with and between meals. If you have difficulty drinking, try very small amounts of water or suck on ice chips. ? Avoid fruit juices, as these do not replace minerals and can actually increase diarrhea. ? Children and adults can use sports drinks to replenish electrolytes. Younger children and infants should use products formulated for children, like oral rehydration solutions. ? Eat food in small amounts and let your stomach recover. ? Get lots of rest. You may feel tired or weak. ? No greasy or fried foods for the next 24-48 hours BRAT diet Bananas Rice Apples and [place] ? Make sure to drink plenty of liquids ? Return if needed ? Straight to ER if any life threatening symptoms ? Zofran as prescribed ? You was given an outpatient order for diarrhea panel, please collect specimen and bring back to outpatient lab then call back to the [facility] or follow up with family doctor for results ? Follow up with family doctor in the next 48-72 hours if no improvement or any worsening of symptoms Referrals: Cruz Sosa [Primary Care Provider] - As needed Forms: Work/School Release Time of Disposition: 12:44 Medical Decision Making - Bahman Inquiry Pt receiving controlled substance: No Bahman was queried for this patient: No Vital Signs: 06/17/21 12:00 Temperature 98.7 F Temperature Source Oral Pulse Rate [Right Brachial] 94 H Respiratory Rate 19 Blood Pressure [Right Arm] 135/91 H Blood Pressure Mean [Right Arm] 105 Blood Pressure Source [Right Arm] Automatic Cuff Blood Pressure Position [Right Arm] Sitting 02 Sat by Pulse Oximetry 97 Oxygen Delivery Method Room Air [facility] [place] HPI - General Stated complaint: diarrhea, JONES, congestion Time Seen by Provider: 06/17/21 12:35 Mode of Arrival: Ambulatory Source of Information: Patient Limitations: No Limitations Description of Symptoms (Recalled from Triage Doc. 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: Yes Do you have electricity?: Yes Attestation statement:: This patient has been screened for Hepatitis A risk factors. I have reviewed the patient's past medical history: Yes 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: Denies:: Cancer, Diabetes Mellitus Type 1, Diabetes Mellitus Type 2, Hypertension, Migraine, MRSA, Seizures Other 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: Reports: Other Laterality Cases: Bilateral: Tonsillectomy Other Surgeries: Yes: Cholecystectomy, Other Amputation: No Fractures: No - Social History Smoking Status: Former smoker Alcohol Intake: never Alcohol Intake Frequency:: a few times
[2021-06-17 12:53] VITALS: BP 135/91; PULSE 94; RESP 19; TEMP 37.1; O2SAT 97
== END 2021-06-17 12:57 | disposition home or self-care (01) ==
PROVIDERS: Emergency Provider Nurse Practitioner; PCP Pediatrics
DX: R11.10 Vomiting, unspecified (principal); R19.7 Diarrhea, unspecified; R51.9 Headache, unspecified
CPT/HCPCS: 99202; G0463

== ENCOUNTER → 2021-08-17 15:29 | Outpatient (CLI) | payer MEDICAID, SELFPAY | PROVIDERS: PCP Pediatrics; Visit Provider Nurse Practitioner | DX: Z20.822 Contact with and (suspected) exposure to COVID-19 (principal) | CPT/HCPCS: C9803; U0003; U0005 ==

== ENCOUNTER 2021-09-30 18:37 | Emergency (ER) | payer MEDICAID, SELFPAY ==
[2021-09-30 19:04] VITALS: BP 162/96; PULSE 102; RESP 18; TEMP 36.9; O2SAT 100; BMI 69.4
[2021-09-30 19:11] LABS: UTC Strep Screen (Rapid) Negative (Negative)
[2021-09-30 19:40] VITALS: BP 162/96; PULSE 100; RESP 18; TEMP 36.9; O2SAT 100
--- NOTE | 2021-09-30 19:42 | HMH.EDUTC ---
[facility] [place] Clinical Impression: Otitis media Qualifiers: Otitis media type: unspecified Laterality: right Qualified Code(s): H66.91 - Otitis media, unspecified, right ear Disposition: Home, Self-Care Condition on Discharge: Good Instructions: Middle Ear Infection, Amoxicillin and Clavulanic Acid Additional Instructions: *Monitor Temp, Over the counter Motrin or Tylenol as directed/as needed Tylenol every 4 hours and Motrin every 6 hours (as long as your family doctor has told you that you can take it) for fever or pain. and straight to ER if unable to lower temp less than 101.0 after medication given *Warm salt water gargles may help to soothe the throat *Throat Lozenges *Warm fluids like tea with honey may help to soothe the throat *Sleep elevated *Humidifier/Vaporizer *Flonase 2 sprays in each nostril daily but be aware that it may take 2-3 days before you notice improvement Take medication as prescribed Your throat swab was sent for culture. Those results are typically sent to your primary care. Be sure to follow up in 2-3 days with your family doctor/primary care physician if no improvement so they can review those result and treat if necessary. If you don?t have a primary care doctor, I recommend you get one but in the mean time, you will have to return to a walk in clinic Follow up IMMEDIATELY for new or worsening symptoms or no Noticeable improvement over the next 48-72 hours. 911 for difficulty breathing or swallowing Prescriptions: Amoxicillin/Potassium Clav [Amox-Clav 875-125 mg Tablet] 1 tab PO BID #20 tab Transmission Status: Pending to [facility] # Fluticasone Propionate [Flonase 50mcg nasal spray 16gm] 1 spr NS DAILY #1 each Transmission Status: Pending to [facility] # Referrals: Cruz Sosa [Primary Care Provider] - As needed Time of Disposition: 19:47 Medical Decision Making - Bahman Inquiry Pt receiving controlled substance: No Bahman was queried for this patient: No Vital Signs: 09/30/21 19:04 09/30/21 19:40 Temperature 98.5 F 98.5 F Temperature Source Oral Oral Pulse Rate 100 H Pulse Rate [Right Brachial] 102 H Respiratory Rate 18 18 Blood Pressure 162/96 H Blood Pressure [Right Arm] 162/96 H Blood Pressure Mean [Right Arm] 118 Blood Pressure Source Automatic Cuff Blood Pressure Source [Right Arm] Automatic Cuff Blood Pressure Position Sitting Blood Pressure Position [Right Arm] Sitting 02 Sat by Pulse Oximetry 100 Oxygen Delivery Method Room Air Room Air - Lab Data Lab results reviewed: Yes: I reviewed the patient's lab results. Lab Results 09/30/21 18:59: Strep Scn Rapid Clinic Negative Orders (Tests/Meds): ORDERS Category Date Time Status Strep Screen Confirmation Stat Micro 09/30/21 18:59 Received [facility] [place] HPI - General Stated complaint: r ear sore throat cough Time Seen by Provider: 09/30/21 19:42 Mode of Arrival: Ambulatory Source of Information: Patient Limitations: No Limitations HEENT Symptoms (Recalled from RN notes): Yes Resp Symptoms (Recalled from RN notes): Yes Skin Symptoms (Recalled from RN notes): No MS Symptoms (Recalled from RN notes): No Functional Status (Recalled from RN notes): wnl - History of Present Illness Provider Complaint: Patient states that she has been having pain in her right ear and having sore throat and nasal congestion States that today she has continued to feel worse and her ear felt like it had a heart beat in it States this evening she was still feeling bad so she came in 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
== END 2021-09-30 19:54 | disposition home or self-care (01) ==
PROVIDERS: Emergency Provider Nurse Practitioner; PCP Pediatrics
DX: H66.91 Otitis media, unspecified, right ear (principal)
CPT/HCPCS: 87880; 99212; G0463

== ENCOUNTER 2021-12-22 15:13 | Emergency (ER) | payer MEDICAID, SELFPAY ==
[2021-12-22 15:26] VITALS: BP 150/83; PULSE 96; RESP 17; TEMP 37.1; O2SAT 99; BMI 69.4
--- NOTE | 2021-12-22 16:15 | HMH.EDUTC ---
[facility] [place] Clinical Impression: Gastroenteritis Disposition: Home, Self-Care Condition on Discharge: Good Instructions: Viral Gastroenteritis, DI for Viral Gastroenteritis -- Adult Additional Instructions: Drink plenty of fluids. Take tylenol or ibuprofen for pain or fever. Take the medications as directed. Follow up with your regular doctor. GO TO THE ER FOR ANY WORSENING SYMPTOMS Prescriptions: Ondansetron [Zofran 4mg ODT] 4 mg PO Q8HP PRN #20 tab PRN Reason: Nausea Transmission Status: Received by [facility] #[id number] Referrals: Cruz Sosa [Primary Care Provider] - Forms: Work/School Release Time of Disposition: 16:27 Medical Decision Making - Medical Records Medical records reviewed: No: I reviewed the patient's medical records. - Bahman Inquiry Pt receiving controlled substance: No Vital Signs: 12/22/21 15:26 12/22/21 16:39 Temperature 98.8 F 98.8 F Temperature Source Oral Pulse Rate 96 H Pulse Rate [Left Radial] 96 H Respiratory Rate 17 17 Blood Pressure 150/83 H Blood Pressure [Right Arm] 150/83 H Blood Pressure Mean [Right Arm] 105 02 Sat by Pulse Oximetry 99 Orders (Tests/Meds): ED MEDICATIONS Discontinued Medications Generic Name Dose Route Start Last Admin Trade Name Freq PRN Reason Stop Dose Admin Ondansetron HCl 4 mg 12/22/21 16:24 12/22/21 16:31 Ondansetron 4mg Odt SL 12/22/21 16:25 4 mg ONCE ONE Administration [facility] [place] HPI - General Stated complaint: V&D,Abd pain Time Seen by Provider: 12/22/21 16:15 Source of Information: Patient Description of Symptoms (Recalled from Triage Doc. by RN): patient comes in today with complaints of belly pain, nausea, vomitting and diarrhea. patient states symptoms began 3 days ago HEENT Symptoms (Recalled from RN notes): No Resp Symptoms (Recalled from RN notes): No Skin Symptoms (Recalled from RN notes): No MS Symptoms (Recalled from RN notes): No Functional Status (Recalled from RN notes): wnl - History of Present Illness Provider Complaint: She states that for the past 2 days she has had n/v/d. She denies any abdominal pain. She states that she has not vomited since last night. She thinks that her symptoms are improving, but she is unable to go to work due to her diarhhea. - Related Data Home Medications Medication Instructions Recorded Confirmed Buspirone HCl [Buspar 10mg 10 mg PO BID 06/17/21 06/17/21 tablet] Previous Rx's Medication Instructions Recorded Amoxicillin/Potassium Clav 1 tab PO BID #20 tab 09/30/21 [Amox-Clav 875-125 mg Tablet] Fluticasone Propionate [Flonase 1 spr NS DAILY #1 each 09/30/21 50mcg nasal spray 16gm] Ondansetron [Zofran 4mg ODT] 4 mg PO Q8HP PRN #20 tab 12/22/21 Allergies Allergy/AdvReac Type Severity Reaction Status Date / Time No Known Allergies Allergy Verified 02/04/21 14:56 - Worker's Comp Is this a Worker's Comp case?: No [facility] History - Hepatitis A Screen Attestation statement:: This patient has been screened for Hepatitis A risk factors. I have reviewed the patient's past medical history: Yes 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: Denies:: Cancer, Diabetes Mellitus Type 1, Diabetes Mellitus Type 2, Hypertension, Migraine, MRSA, Seizures Other 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: Reports: Other Laterality Cases: Bilateral: Tonsillectomy Other Surgeries: Yes: Cholecystectomy, Other Amputation: No Fractures: No - Social History Smoking Status: Former smoker Alcohol Intake: never Alcohol Intake Frequency:: a few times a month Substance Use Type: marijuana Occupational Status: other Housing: house Family Hx:: Cancer, Diabetes, Heart Attack, Stroke, Hypertension, Hyperlipidemia, Coronary Artery Disease ROS Obtained: Yes All systems reviewed & no additional complaints - Constitutional Constitutional: Denies chills, Denies fever(s) - Eyes Eyes: Denies eye discharge - ENT Ears, Nose, Mouth, and Throat: Denies dizzine
[2021-12-22 16:39] VITALS: BP 150/83; PULSE 96; RESP 17; TEMP 37.1
== END 2021-12-22 16:39 | disposition home or self-care (01) ==
PROVIDERS: Emergency Provider Nurse Practitioner Family; PCP Pediatrics
DX: K52.9 Noninfective gastroenteritis and colitis, unspecified (principal)
CPT/HCPCS: 99212; G0463

== ENCOUNTER 2022-01-02 14:02 | Emergency (ER) | payer MEDICAID, SELFPAY ==
--- NOTE | 2022-01-02 14:37 | HMH.EDUTC ---
[facility] [place] Clinical Impression: Acute bronchitis Qualifiers: Bronchitis organism: unspecified organism Qualified Code(s): J20.9 - Acute bronchitis, unspecified Sinusitis Qualifiers: Sinusitis location: unspecified location Chronicity: acute Recurrence: non-recurrent Qualified Code(s): J01.90 - Acute sinusitis, unspecified Disposition: Home, Self-Care Condition on Discharge: Good Instructions: DI for Sinusitis, DI for Acute Bronchitis Additional Instructions: Drink plenty of fluids. Take tylenol or ibuprofen for pain or fever. Take the medications as directed. Follow up with your regular doctor. GO TO THE ER FOR ANY WORSENING SYMPTOMS The cough medication (promethazine dm) will make you drowsy, so don't drive or operate heavy machinery after taking it. Prescriptions: Promethazine/Dextromethorphan [Promethazine-Dm Syrup] 5 ml PO Q6HP PRN #240 ml PRN Reason: Cough Transmission Status: Received by [facility] #[id number] Amoxicillin [Amoxicillin 875MG Tab] 875 mg PO Q12H #20 tab Transmission Status: Received by [facility] # methylPREDNISolone [Medrol] 4 mg PO DIRECTED 6 Days #21 packet Transmission Status: Received by [facility] #[id number] Referrals: Cruz Sosa [Primary Care Provider] - Time of Disposition: 14:51 Medical Decision Making - Medical Records Medical records reviewed: No: I reviewed the patient's medical records. - Bahman Inquiry Pt receiving controlled substance: No Vital Signs: 01/02/22 14:51 01/02/22 15:09 Temperature 99.4 F 99.4 F Temperature Source Oral Pulse Rate 106 H Pulse Rate [Left Radial] 106 H Respiratory Rate 18 18 Blood Pressure 142/89 H Blood Pressure [Right Arm] 142/89 H Blood Pressure Mean [Right Arm] 106 02 Sat by Pulse Oximetry 99 - Lab Data Lab Results 01/02/22 14:36: Chlamy pneumoniae PCR Not detected, Adenovirus (PCR) Not detected, B. pertussis DNA (PCR) Not detected, Coronavirus OC43 (PCR) Not detected, Coronavirus HKU1 (PCR) Not detected, Coronavirus 229E (PCR) Not detected, SARS-CoV-2 (PCR) Not detected, Coronavirus NL63 (PCR) Not detected, Human Metapneumovir PCR Not detected, Influenza A (H1) PCR Not detected, Influ A (H1N1/09) PCR Not detected, Influenza A (H3) PCR Not detected, Influenza Type A (PCR) Not detected, Influenza Type B (PCR) Not detected, M. pneumoniae (PCR) Not detected, Parainfluenza 1 (PCR) Not detected, Parainfluenza 2 (PCR) Not detected, Parainfluenza 3 (PCR) Not detected, Parainfluenza 4 (PCR) Not detected, RSV (PCR) Not detected, Entero/Rhino (PCR) Detected A [facility] [place] - General Stated complaint: congestion, cough, fever/chills Time Seen by Provider: 01/02/22 14:37 - History of Present Illness Provider Complaint: She c/o cough and chest congestion for the past 3 days. - Related Data Home Medications Medication Instructions Recorded Confirmed Buspirone HCl [Buspar 10mg 10 mg PO BID 06/17/21 06/17/21 tablet] Previous Rx's Medication Instructions Recorded Amoxicillin/Potassium Clav 1 tab PO BID #20 tab 09/30/21 [Amox-Clav 875-125 mg Tablet] Fluticasone Propionate [Flonase 1 spr NS DAILY #1 each 09/30/21 50mcg nasal spray 16gm] Ondansetron [Zofran 4mg ODT] 4 mg PO Q8HP PRN #20 tab 12/22/21 Amoxicillin [Amoxicillin 875MG 875 mg PO Q12H #20 tab 01/02/22 Tab] Promethazine/Dextromethorphan 5 ml PO Q6HP PRN #240 ml 01/02/22 [Promethazine-Dm Syrup] methylPREDNISolone [Medrol] 4 mg PO DIRECTED 6 Days #21 01/02/22 packet Allergies Allergy/AdvReac Type Severity Reaction Status Date / Time No Known Allergies Allergy Verified 01/02/22 14:54 [facility] History - Hepatitis A Screen Attestation statement:: This patient has been screened for Hepatitis A risk factors. I have reviewed the patient's past medical history: Yes 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: Denies:: Cancer, Diabetes Mellitus Type 1, Diabetes Mellitus Type 2, Hypert
[2022-01-02 14:51] VITALS: BP 142/89; PULSE 106; RESP 18; TEMP 37.4; O2SAT 99; BMI 69.4
[2022-01-02 15:06] LABS: Adenovirus,PCR Not Detected (NotDetected); Bordetella Pertussis Not Detected (NotDetected); Chlamydophila Pneumoniae, PCR Not Detected (NotDetected); Coronavirus 19, PCR Not Detected (NotDetected); Coronavirus 229E Not Detected (NotDetected); Coronavirus NL63 Not Detected (NotDetected); Coronavirus OC43 Not Detected (NotDetected); Coronovirus HKU1,PCR Not Detected (NotDetected); Human Metapneumovirus Not Detected (NotDetected); Influenza A, PCR Not Detected (NotDetected); Influenza AH1, 2009 Not Detected (NotDetected); Influenza AH1, PCR Not Detected (NotDetected); Influenza AH3,PCR Not Detected (NotDetected); Influenza B, PCR Not Detected (NotDetected); Mycoplasma Pneumoniae, PCR Not Detected (NotDetected); Parainfluenza 1, PCR Not Detected (NotDetected); Parainfluenza 2, PCR Not Detected (NotDetected); Parainfluenza 3, PCR Not Detected (NotDetected); Parainfluenza 4, PCR Not Detected (NotDetected); Respiratory Syncytial Virus Not Detected (NotDetected)
[2022-01-02 15:09] VITALS: BP 142/89; PULSE 106; RESP 18; TEMP 37.4
[2022-01-02 18:41] LABS: Rhinovirus/Enterovirus Detected (NotDetected)
== END 2022-01-02 15:10 | disposition home or self-care (01) ==
PROVIDERS: Emergency Provider Nurse Practitioner Family; PCP Pediatrics
DX: J20.9 Acute bronchitis, unspecified (principal); J01.90 Acute sinusitis, unspecified
CPT/HCPCS: 87581; 87632; 87798; 99212; C9803; G0463; U0003; U0005

== ENCOUNTER 2022-04-18 18:47 | Emergency (ER) | payer MEDICAID, SELFPAY ==
--- NOTE | 2022-04-18 19:35 | EXP.UTC ---
Discharge Plan Disposition Patient Disposition: Home, Self-Care Condition: Good Prescriptions Prescriptions: New fluconazole [Diflucan] 100 mg tablet 100 mg PO DAILY Qty: 2 0RF ibuprofen [IBU] 800 mg tablet 800 mg PO Q8HP PRN (Reason: Moderate Pain) Qty: 30 0RF Referrals Follow up/Referrals: Cruz Sosa [Primary Care Provider] - See instructions Activity Restrictions/Add. Instructions Additional Instructions/Restrictions: Drink plenty of fluids. Take tylenol or ibuprofen for pain or fever. Take the medications as directed. Follow up with your regular doctor. GO TO THE ER FOR ANY WORSENING SYMPTOMS Take the diflucan daily for the next 2 days. Clinical Impressions Clinical Impression: Yeast infection, Migraine Stand Alone Forms Stand Alone Forms: Work/School Release Instructions Patient Instructions: Vaginal Yeast Infection, Fluconazole Discharge ED Provider: Felix Camarillo [facility] [place] General Stated complaint: poss yeast infection Time Seen by Provider: 04/18/22 19:35 History of Present Illness Provider Complaint: She is here with c/o having vaginal yeast infection symptoms. She denies any other complaints. Related Data Previous Rx's Medication Instructions Recorded fluconazole 100 mg tablet 100 mg PO DAILY #2 tabs 04/18/22 (Diflucan) ibuprofen 800 mg tablet (IBU) 800 mg PO Q8HP PRN Moderate Pain 04/18/22 #30 tabs Allergies Allergy/AdvReac Type Severity Reaction Status Date / Time No Known Allergies Allergy Verified 01/02/22 14:54 [facility] 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 Anxiety Depression Migraine Surgical History History of section History of cholecystectomy History of tonsillectomy Social History Smoking Status: Former smoker second hand exposure: No alcohol intake: never substance use type: marijuana current occupational status: other Travel in the last 8 weeks: None housing: house ROS Obtained: Yes All systems reviewed & no additional complaints except as documented Constitutional Constitutional: Denies chills and Denies fever(s) Eyes Eyes: Denies eye discharge ENT Ears, Nose, Mouth, and Throat: Denies dizziness, Denies otalgia and Denies sore throat Cardiovascular Cardiovascular: Denies chest pain Respiratory Respiratory: Denies shortness of breath, Denies chest congestion, Denies cough, Denies stridor and Denies wheezing Gastrointestinal Gastrointestingal: Denies nausea or vomiting Musculoskeletal Musculoskeletal: Reports system reviewed and no additional complaints, except as documented and Denies arthralgias Integumentary/Breasts Skin/Breast: Denies rash Neurologic Neurologic: Denies dizziness and Denies paresthesias Allergic/Immunologic Allergic/Immunologic: Denies wheezing Physical Exam General General appearance: alert and in no apparent distress Head Head exam: atraumatic, normocephalic and normal inspection Eye Eye exam: Present normal appearance, PERRL and EOMI ENT ENT exam: Present normal exam, normal oropharynx, mucous membranes moist, TM's normal bilaterally and normal external ear exam Neck Neck exam: Present normal inspection, full ROM and trachea midline; Absent meningismus or lymphadenopathy Chest Chest inspection: Present normal inspection and symmetric chest wall rise; Absent tenderness Respiratory Respiratory exam: Present normal lung sounds bilaterally; Absent respiratory distress Cardiovascular Cardiovascular exam: Present regular rate and normal rhythm; Absent JVD Abdominal Exam Abdominal exam: Present soft and normal bowel sounds; Absent distention, tenderness or guarding Extremities Exam Extremities exam: Present normal inspection, full ROM and normal capillary refill; Absent calf tenderness Back Exam Back exam: Present normal inspection; Absent
[2022-04-18 19:39] VITALS: BP 140/90; PULSE 97; RESP 18; TEMP 37.1; O2SAT 100; BMI 69.4
[2022-04-18 19:52] VITALS: BP 140/90; PULSE 97; RESP 18; TEMP 37.1; O2SAT 100
== END 2022-04-18 20:24 | disposition home or self-care (01) ==
PROVIDERS: Emergency Provider Nurse Practitioner Family; PCP Pediatrics
DX: B37.31 Acute candidiasis of vulva and vagina (principal); G43.909 Migraine, unspecified, not intractable, without status migrainosus; F32.A Depression, unspecified; F41.9 Anxiety disorder, unspecified; Z79.4 Long term (current) use of insulin; Z79.51 Long term (current) use of inhaled steroids; Z87.891 Personal history of nicotine dependence
CPT/HCPCS: 99213; G0463

== ENCOUNTER 2023-05-02 08:14 | Emergency (ER) | payer OTHER, SELFPAY ==
[2023-05-02 08:20] VITALS: BP 130/89; PULSE 80; RESP 18; TEMP 37.1; O2SAT 95; BMI 69.4
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
[2023-05-02 09:11] VITALS: BP 130/89; PULSE 80; RESP 18; TEMP 37.1; O2SAT 95
== END 2023-05-02 09:11 | disposition home or self-care (01) ==
PROVIDERS: Emergency Provider Nurse Practitioner Family; PCP Pediatrics
DX: J20.9 Acute bronchitis, unspecified (principal); F41.1 Generalized anxiety disorder; F33.9 Major depressive disorder, recurrent, unspecified
CPT/HCPCS: 99212; 99214; G0463

== ENCOUNTER → 2023-05-31 07:19 | Outpatient (CLI) | payer OTHER, SELFPAY ==
[2023-05-31 19:08] LABS: Basophils % 0.1 % (0.1-2.0); Eosinophils # 0.2 K/mm3 (0.0-0.4); Eosinophils % 2.1 % (0.1-12.0); Hemoglobin 11.8 g/dL (12.2-16.2); Lymphocytes # 2.1 K/mm3 (0.7-4.5); Lymphocytes % 22.4 % (10-50); Mean Corpuscular HGB Conc 32.9 g/dL (31.8-35.4); Mean Corpuscular Hemoglobin 26.5 pg (27.0-31.2); Mean Corpuscular Volume 80.5 fl (81-99); Mean Platelet Volume 8.5 fl (7.4-10.4); Monocytes # 0.4 K/mm3 (0.1-1.0); Monocytes % 4.7 % (1.7-9.3); Neutrophils # 6.6 K/mm3 (1.8-7.8); Neutrophils % 70.6 % (37.0-80.0); Platelet Count 349 K/mm3 (142-424); Red Blood Count 4.47 M/mm3 (4.20-5.40); White Blood Count 9.4 K/mm3 (4.8-10.8)
[2023-05-31 20:27] LABS: Alanine Aminotransferase 20 U/L (12-78); Albumin Level 3.5 g/dl (3.5-5.0); Albumin/Globulin Ratio 1.3 (1.1-1.8); Alkaline Phosphatase 77 U/L (38-126); Anion Gap 12.6 mEq/L (5-15); Aspartate Amino Transferase 20 U/L (14-36); Blood Urea Nitrogen 12 mg/dl (7-17); Calcium 8.9 mg/dl (8.4-10.2); Carbon Dioxide 27 mmol/L (22.0-30.0); Chloride 102 mmol/L (98-107); Chol/HDL Ratio 5.8 (1-3.5); Cholesterol 151 mg/dl (140-200); Estimated Glomerular Filt Rate 120 ml/min (>60); GFR (African American) 145 ML/MIN (>60); Globulin 2.8 g/dL (1.3-3.2); Glucose 84 mg/dl (74-100); HDL Cholesterol 26 mg/dl (40-60); Potassium 4.6 mmoL/L (3.5-5.1); Sodium 137 mmol/L (136-145); Total Protein,Serum 6.3 g/dl (6.3-8.2); Triglycerides 150 mg/dl (30-150); VLDL Cholesterol 30 mg/dL (0-40)
[2023-05-31 20:30] LABS: Bilirubin,Total < 0.1 mg/dl (0.2-1.3)
[2023-05-31 20:39] LABS: Direct LDL Cholesterol 100.27 mg/dL (100-129)
[2023-05-31 20:58] LABS: Thyroid Stimulating Hormone 0.36 uIU/mL (0.465-4.68)
[2023-05-31 22:19] LABS: 25-OH Vitamin D, Total 14.6 ng/mL (30-100)
== END ==
PROVIDERS: PCP Student in an Organized Health Care Education/Training Program; Visit Provider Student in an Organized Health Care Education/Training Program
DX: E55.9 Vitamin D deficiency, unspecified (principal); Z68.44 Body mass index [BMI] 60.0-69.9, adult; Z13.29 Encounter for screening for other suspected endocrine disorder; Z13.21 Encounter for screening for nutritional disorder
CPT/HCPCS: 80053; 80061; 82306; 83036; 84443; 85025

== ENCOUNTER 2023-07-03 08:43 | Emergency (ER) | payer OTHER, SELFPAY ==
[2023-07-03 09:00] VITALS: BP 164/94; PULSE 93; RESP 18; TEMP 36.7; O2SAT 98; BMI 69.4
[2023-07-03 09:07] LABS: UTC Pregnancy Test, Urine Negative (Negative)
--- NOTE | 2023-07-03 09:29 | EXP.UTC ---
Discharge Plan Disposition Patient Disposition: Home, Self-Care Condition: Good Prescriptions Prescriptions: New ondansetron 4 mg tablet,disintegrating 4 mg PO Q8H PRN (Reason: nausea and vomiting) Qty: 10 0RF No Action Vraylar 3 mg capsule 3 mg PO DAILY Qty: 30 1RF trazodone 100 mg tablet 100 mg PO HS Qty: 30 1RF hydroxyzine pamoate 50 mg capsule 50 mg PO DAILY labetalol 100 mg tablet 100 mg PO BID Qty: 60 2RF cholecalciferol (vitamin D3) 1,250 mcg (50,000 unit) capsule 1,250 mcg PO WEEKLY Qty: 8 0RF desvenlafaxine succinate [Pristiq] 100 mg tablet extended release 24 hr 100 mg PO DAILY Qty: 30 1RF doxepin 25 mg capsule 25 mg PO DAILY Patient Comments: TAKE 1 CAPSULE BY MOUTH EVERY DAY AT BEDTIME NEEDED FOR SLEEP Referrals Follow up/Referrals: Cruz Sosa [Primary Care Provider] - See instructions Activity Restrictions/Add. Instructions Additional Instructions/Restrictions: Drink extra fluids with and between meals. If you have difficulty drinking, try very small amounts of water or suck on ice chips. ? Avoid fruit juices, as these do not replace minerals and can actually increase diarrhea. ? Children and adults can use sports drinks to replenish electrolytes. Younger children and infants should use products formulated for children, like oral rehydration solutions. ? Eat food in small amounts and let your stomach recover. ? Get lots of rest. You may feel tired or weak. ? No greasy or fried foods for the next 24-48 hours BRAT diet Bananas Rice Apples and [place] ? Make sure to drink plenty of liquids ? Return if needed ? Straight to ER if any life threatening symptoms ? Zofran as prescribed ? Follow up with family doctor in the next 48-72 hours if no improvement or any worsening of symptoms Clinical Impressions Clinical Impression: Vomiting and diarrhea Stand Alone Forms Stand Alone Forms: Work/School Release Instructions Patient Instructions: Nausea and Vomiting-Adult, Diarrhea Discharge ED Provider: Bárbara Andino [facility] [place] General Stated complaint: vomiting Mode of Arrival: Ambulatory Source of Information: Patient Limitations: No Limitations Time Seen by Provider: 07/03/23 09:29 Description of Symptoms (Recalled from Triage Doc. 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 States that she has been having N/V/D States that she was wasnt able to go to work today due to it and was wanting to have a test done Related Data Home Medications Medication Instructions Recorded Confirmed hydroxyzine pamoate 50 mg capsule 50 mg PO DAILY 05/30/23 07/03/23 doxepin 25 mg capsule 25 mg PO DAILY 07/03/23 07/03/23 Previous Rx's Medication Instructions Recorded labetalol 100 mg tablet 100 mg PO BID #60 tabs 05/30/23 cholecalciferol (vitamin D3) 1,250 1,250 mcg PO WEEKLY #8 caps 06/01/23 mcg (50,000 unit) capsule cariprazine 3 mg capsule (Vraylar) 3 mg PO DAILY #30 caps 06/05/23 trazodone 100 mg tablet 100 mg PO HS #30 tabs 06/05/23 desvenlafaxine succinate 100 mg 100 mg PO DAILY #30 tabs 06/29/23 tablet,extended release 24 hr (Pristiq) ondansetron 4 mg disintegrating 4 mg PO Q8H PRN nausea and 07/03/23 tablet vomiting #10 tabs Allergies Allergy/AdvReac Type Severity Reaction Status Date / Time phentermine [From Adipex-P] AdvReac Mild Palpitation Verified 07/03/23 09:13 s Worker's Comp Is this a Worker's Comp case?: No [facility] Disclaimer: The information contained in this section
[2023-07-03 09:55] VITALS: BP 164/94; PULSE 93; RESP 18; TEMP 36.7; O2SAT 98
== END 2023-07-03 09:55 | disposition home or self-care (01) ==
PROVIDERS: Emergency Provider Nurse Practitioner; PCP Pediatrics
DX: R11.2 Nausea with vomiting, unspecified (principal); R19.7 Diarrhea, unspecified; I10 Essential (primary) hypertension; E66.01 Morbid (severe) obesity due to excess calories; Z68.44 Body mass index [BMI] 60.0-69.9, adult
CPT/HCPCS: 81025; 99212; 99214; G0463

== ENCOUNTER 2023-09-07 08:04 | Emergency (ER) | payer OTHER, SELFPAY ==
[2023-09-07 08:20] VITALS: BP 136/88; PULSE 89; RESP 20; TEMP 36.7; O2SAT 96; BMI 48.4
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
[2023-09-07 09:05] VITALS: BP 136/88; PULSE 89; RESP 20; TEMP 36.7; O2SAT 96
== END 2023-09-07 09:08 | disposition home or self-care (01) ==
PROVIDERS: Emergency Provider Nurse Practitioner; PCP Student in an Organized Health Care Education/Training Program
DX: R11.2 Nausea with vomiting, unspecified (principal); R19.7 Diarrhea, unspecified; R10.816 Epigastric abdominal tenderness; I10 Essential (primary) hypertension; E66.01 Morbid (severe) obesity due to excess calories; Z68.42 Body mass index [BMI] 45.0-49.9, adult
CPT/HCPCS: 99212; 99214; G0463

== ENCOUNTER 2023-09-07 18:33 | Outpatient (CLI) | payer OTHER, SELFPAY ==
[2023-09-07 18:14] LABS: Basophils % 0.1 % (0.1-2.0); Eosinophils % 0.4 % (0.1-12.0); Hematocrit 34.2 % (37.0-47.0); Hemoglobin 11.7 g/dL (12.2-16.2); Lymphocytes # 1.7 K/mm3 (0.7-4.5); Lymphocytes % 19.2 % (10-50); Mean Corpuscular HGB Conc 34.1 g/dL (31.8-35.4); Mean Corpuscular Hemoglobin 27.8 pg (27.0-31.2); Mean Corpuscular Volume 81.4 fl (81-99); Mean Platelet Volume 8.6 fl (7.4-10.4); Monocytes # 0.5 K/mm3 (0.1-1.0); Monocytes % 5.9 % (1.7-9.3); Neutrophils # 6.6 K/mm3 (1.8-7.8); Neutrophils % 74.5 % (37.0-80.0); Platelet Count 330 K/mm3 (142-424); Red Cell Distribution Width 15.1 % (11.5-17.5); White Blood Count 8.9 K/mm3 (4.8-10.8)
[2023-09-07 18:22] LABS: HCG Qualitative, Serum Negative (Negative)
[2023-09-07 18:23] LABS: Alanine Aminotransferase 17 U/L (12-78); Albumin Level 3.5 g/dl (3.5-5.0); Albumin/Globulin Ratio 1.3 (1.1-1.8); Alkaline Phosphatase 87 U/L (38-126); Amylase 33 U/L (30-110); Anion Gap 7.3 mEq/L (5-15); Aspartate Amino Transferase 19 U/L (14-36); Bilirubin,Total 0.3 mg/dl (0.2-1.3); Blood Urea Nitrogen 8 mg/dl (7-17); Calcium 9.1 mg/dl (8.4-10.2); Carbon Dioxide 30 mmol/L (22.0-30.0); Chloride 106 mmol/L (98-107); Chol/HDL Ratio 7.1 (1-3.5); Cholesterol 199 mg/dl (140-200); Estimated Glomerular Filt Rate 120 ml/min (>60); GFR (African American) 145 ML/MIN (>60); Globulin 2.6 g/dL (1.3-3.2); Glucose 87 mg/dl (74-100); HDL Cholesterol 28 mg/dl (40-60); Lipase 74 U/L (23-300); Potassium 4.3 mmoL/L (3.5-5.1); Sodium 139 mmol/L (136-145); Total Protein,Serum 6.1 g/dl (6.3-8.2); Triglycerides 115 mg/dl (30-150); VLDL Cholesterol 23 mg/dL (0-40)
[2023-09-07 18:24] LABS: Iron 87 ug/dL (37-170)
[2023-09-07 18:33] LABS: Total Iron Binding Capacity 432 ug/dL (265-497)
[2023-09-07 18:34] LABS: Direct LDL Cholesterol 135.59 mg/dL (100-129)
[2023-09-07 18:45] LABS: 25-OH Vitamin D, Total 14.5 ng/mL (30-100)
[2023-09-07 18:47] LABS: Free Thyroxine Index 3.4 ug/dL (5.93-13.13); T4 (Thyroxine) 9.7 ug/dl (5.53-11.0); Triiodothryronine (T3) Uptake 35 % (23.5-40.5)
[2023-09-07 19:01] LABS: Thyroid Stimulating Hormone 0.75 uIU/mL (0.465-4.68)
[2023-09-07 19:33] LABS: Vitamin B12 451 pg/mL (239-931)
[2023-09-07 19:46] LABS: Folate 4.59 ng/mL
[2023-09-07 20:07] LABS: Ferritin 16.1 ng/ml (6.24-137)
[2023-09-07 21:27] LABS: Hemoglobin A1C 5.1 % (4.0-6.0)
== END 2023-09-07 23:59 ==
LOC: LAB.DROPOF 18:33
PROVIDERS: PCP Student in an Organized Health Care Education/Training Program; Visit Provider Student in an Organized Health Care Education/Training Program
DX: R10.13 Epigastric pain (principal); R10.9 Unspecified abdominal pain; D64.9 Anemia, unspecified; E55.9 Vitamin D deficiency, unspecified
CPT/HCPCS: 80053; 80061; 82150; 82306; 82607; 82728; 82746; 83036; 83540; 83550; 83690; 84436; 84443; 84479; 84703; 85025

== ENCOUNTER 2023-09-14 09:32 | Outpatient (CLI) | payer OTHER, SELFPAY ==
--- NOTE | 2023-09-14 09:32 | US_ITS ---
FINAL REPORT TECHNIQUE: Sonographic images of the right upper quadrant were obtained. CLINICAL HISTORY: epigastric pain COMPARISON: None FINDINGS: PANCREAS: Unremarkable. LIVER: Homogeneous. No focal hepatic lesion. No intrahepatic biliary ductal dilatation. GALLBLADDER: The gallbladder has been surgically resected.. . COMMON DUCT: 2 mm. Normal for age. RIGHT KIDNEY: The right kidney measures 11.8 cm. There is no hydronephrosis, mass, or stone. FREE FLUID: None. IMPRESSION: Prior cholecystectomy without evidence of biliary ductal dilatation. Reviewed, Interpreted and Dictated by Sharona Ahmadi MD Transcribed by Evie Kim Authenticated and [facility]
[2023-09-16 08:20] LABS: H. pylori Breath Test Negative (Negative)
== END 2023-09-14 23:59 ==
LOC: RAD 09:32
PROVIDERS: PCP Student in an Organized Health Care Education/Training Program; Visit Provider Student in an Organized Health Care Education/Training Program
DX: R10.13 Epigastric pain (principal); R11.2 Nausea with vomiting, unspecified
CPT/HCPCS: 76705; 83013

== ENCOUNTER 2023-10-30 09:36 | Emergency (ER) | payer OTHER, SELFPAY ==
[2023-10-30 09:45] VITALS: BP 154/94; PULSE 97; RESP 118; TEMP 36.6; O2SAT 96; BMI 65.3
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
[2023-10-30 10:09] LABS: UTC Influenza A Antigen Negative (Negative); UTC Influenza B Antigen Negative (Negative)
[2023-10-30 10:43] VITALS: BP 154/94; PULSE 97; RESP 18; TEMP 36.6; O2SAT 96
--- NOTE | 2023-10-30 10:43 | PC.NURSE ---
Sent full panel to lab via tube
[2023-10-30 10:46] LABS: Adenovirus,PCR Not Detected (NotDetected)
[2023-10-30 10:47] LABS: Coronavirus 19, PCR Not Detected (NotDetected); Coronavirus 229E Not Detected (NotDetected); Coronavirus NL63 Not Detected (NotDetected); Coronavirus OC43 Not Detected (NotDetected); Coronovirus HKU1,PCR Not Detected (NotDetected); Human Metapneumovirus Not Detected (NotDetected); Influenza A, PCR Not Detected (NotDetected); Influenza AH1, 2009 Not Detected (NotDetected); Influenza AH1, PCR Not Detected (NotDetected); Influenza AH3,PCR Not Detected (NotDetected); Influenza B, PCR Not Detected (NotDetected); Parainfluenza 1, PCR Not Detected (NotDetected); Parainfluenza 2, PCR Not Detected (NotDetected); Parainfluenza 3, PCR Not Detected (NotDetected); Parainfluenza 4, PCR Not Detected (NotDetected); Respiratory Syncytial Virus Not Detected (NotDetected); Rhinovirus/Enterovirus Not Detected (NotDetected)
== END 2023-10-30 10:43 | disposition home or self-care (01) ==
PROVIDERS: Emergency Provider Nurse Practitioner Family; PCP Student in an Organized Health Care Education/Training Program
DX: A08.4 Viral intestinal infection, unspecified (principal); R11.2 Nausea with vomiting, unspecified; R19.7 Diarrhea, unspecified; M79.18 Myalgia, other site; I10 Essential (primary) hypertension
CPT/HCPCS: 87632; 87635; 87804; 99212; 99214; G0463

== ENCOUNTER 2024-03-02 18:24 | Emergency (ER) | payer OTHER, SELFPAY ==
[2024-03-02 18:35] VITALS: BMI 41.5
--- NOTE | 2024-03-02 18:36 | XR_ITS ---
PROCEDURE INFORMATION: Exam: XR Left Ankle Exam date and time: 03/02/2024 7:45 PM Age: 28 years old Clinical indication: Pain; Ankle; Left; Additional info: Injury TECHNIQUE: Imaging protocol: Radiologic exam of the left ankle. Views: 3 or more views. COMPARISON: CR Foot L 03/02/2024 7:44 PM FINDINGS: Bones/joints: No acute fracture or malalignment. Calcaneal enthesopathy. Soft tissues: Soft tissue swelling. IMPRESSION: No acute osseous findings.
--- NOTE | 2024-03-02 18:36 | XR_ITS ---
PROCEDURE INFORMATION: Exam: XR Left Foot Exam date and time: 03/02/2024 7:44 PM Age: 28 years old Clinical indication: Pain; Foot; Left; Additional info: Injury TECHNIQUE: Imaging protocol: Radiologic exam of the left foot. Views: 3 or more views. COMPARISON: No relevant prior studies available. FINDINGS: Bones/joints: No acute fracture or malalignment. Calcaneal enthesopathy. Soft tissues: Soft tissue swelling. IMPRESSION: No acute osseous findings.
[2024-03-02 19:00] VITALS: BP 150/103; PULSE 103; RESP 21; TEMP 36.7; O2SAT 97; BMI 40.3
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
[2024-03-02 20:10] VITALS: BP 150/103; PULSE 103; RESP 21; TEMP 36.7; O2SAT 97
== END 2024-03-02 20:13 | disposition home or self-care (01) ==
PROVIDERS: Emergency Provider Nurse Practitioner Family; PCP Student in an Organized Health Care Education/Training Program
DX: S96.912A Strain of unspecified muscle and tendon at ankle and foot level, left foot, initial encounter (principal); M25.572 Pain in left ankle and joints of left foot; X50.1XXA Overexertion from prolonged static or awkward postures, initial encounter
CPT/HCPCS: 73610; 73630; 99212; 99213; G0463

== ENCOUNTER 2024-09-04 23:54 | Emergency (ER) | payer OTHER, SELFPAY ==
[2024-09-04 23:56] VITALS: BP 150/98; PULSE 86; RESP 18; TEMP 36.8; O2SAT 97; BMI 79.0
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
[2024-09-05] MEDS: ACETAMINOPHEN 1,000MG/100ML VIAL 1000 MG IV (00:21)
[2024-09-05] MEDS: PROCHLORPERAZINE 10MG/2ML VIAL 10 MG IV (00:21)
[2024-09-05] MEDS: DEXAMETHASONE 4MG/ML 1ML VIAL 8 MG IV (00:22)
[2024-09-05] MEDS: MAGNESIUM SULFATE IN WATER 2 GM/50 ML PIGGYBACK IV (00:23)
[2024-09-05] MEDS: KETOROLAC 30MG/ML VIAL 30 MG IV (00:23)
[2024-09-05 00:31] VITALS: BP 140/90; PULSE 71; O2SAT 98
[2024-09-05] MEDS: LACTATED RINGERS 1000ML 1,000 ML 999 ML IV (00:31)
[2024-09-05 01:01] VITALS: BP 132/81; PULSE 71; O2SAT 99
--- NOTE | 2024-09-05 01:27 | PC.NURSE ---
Patient is asleep in bed at this time.
[2024-09-05] MEDS: diphenhydrAMINE 25MG CAPSULE 50 MG PO (01:35)
[2024-09-05 01:42] VITALS: BP 132/81; PULSE 74; RESP 18; TEMP 36.8; O2SAT 99
== END 2024-09-05 01:40 | disposition home or self-care (01) ==
PROVIDERS: Emergency Provider Emergency Medicine; PCP Nurse Practitioner Family
DX: G43.909 Migraine, unspecified, not intractable, without status migrainosus (principal); H53.8 Other visual disturbances
CPT/HCPCS: 96361; 96365; 96374; 96375; 99284; J0131; J0780; J1100; J1885; J3475; J7120

== ENCOUNTER 2024-10-11 14:03 | Outpatient (CLI) | payer OTHER, SELFPAY ==
[2024-10-11 14:08] LABS: Basophils % 0.1 % (0.1-2.0); Eosinophils # 0.1 K/mm3 (0.0-0.4); Eosinophils % 0.9 % (0.1-12.0); Hematocrit 39.3 % (37.0-47.0); Hemoglobin 12.3 g/dL (12.2-16.2); Lymphocytes # 1.6 K/mm3 (0.7-4.5); Lymphocytes % 22.9 % (10-50); Mean Corpuscular HGB Conc 31.3 g/dL (31.8-35.4); Mean Corpuscular Hemoglobin 25.3 pg (27.0-31.2); Mean Corpuscular Volume 80.7 fl (81-99); Mean Platelet Volume 9.4 fl (7.4-10.4); Monocytes # 0.5 K/mm3 (0.1-1.0); Monocytes % 6.6 % (1.7-9.3); Neutrophils # 4.8 K/mm3 (1.8-7.8); Neutrophils % 69.2 % (37.0-80.0); Platelet Count 372 K/mm3 (142-424); Red Blood Count 4.87 M/mm3 (4.20-5.40); Red Cell Distribution Width 14.4 % (11.5-17.5); White Blood Count 6.9 K/mm3 (4.8-10.8)
[2024-10-11 14:26] LABS: Alanine Aminotransferase 16 U/L (12-78); Albumin Level 3.8 g/dl (3.5-5.0); Albumin/Globulin Ratio 1.5 (1.1-1.8); Alkaline Phosphatase 77 U/L (38-126); Anion Gap 12.8 mEq/L (5-15); Aspartate Amino Transferase 19 U/L (14-36); Bilirubin,Total 0.4 mg/dl (0.2-1.3); Blood Urea Nitrogen 14 mg/dl (7-17); Calcium 9.5 mg/dl (8.4-10.2); Carbon Dioxide 26 mmol/L (22.0-30.0); Chloride 102 mmol/L (98-107); Chol/HDL Ratio 5.4 (1-3.5); Cholesterol 205 mg/dl (140-200); Estimated Glomerular Filt Rate 119 ml/min (>60); GFR (African American) 144 ML/MIN (>60); Globulin 2.5 g/dL (1.3-3.2); Glucose 76 mg/dl (74-100); HDL Cholesterol 38 mg/dl (40-60); Magnesium 1.9 mg/dl (1.6-2.3); Potassium 4.8 mmoL/L (3.5-5.1); Sodium 136 mmol/L (136-145); Total Protein,Serum 6.3 g/dl (6.3-8.2); Triglycerides 73 mg/dl (30-150); VLDL Cholesterol 15 mg/dL (0-40)
[2024-10-11 14:37] LABS: Direct LDL Cholesterol 149.18 mg/dL (100-129)
[2024-10-11 14:57] LABS: Thyroid Stimulating Hormone 1.65 uIU/mL (0.465-4.68)
[2024-10-11 15:01] LABS: 25-OH Vitamin D, Total < 12.8 ng/mL (30-100)
[2024-10-11 15:16] LABS: Vitamin B12 378 pg/mL (239-931)
[2024-10-11 15:32] LABS: Ferritin 10.6 ng/ml (6.24-137)
[2024-10-12 08:45] LABS: Triiodothyronine (T3) Free 3.4 pg/mL (2.0-4.4)
== END 2024-10-11 23:59 | disposition home or self-care (01) ==
LOC: LAB.DROPOF 14:04
PROVIDERS: PCP Nurse Practitioner Family; Visit Provider Nurse Practitioner Family
DX: G43.909 Migraine, unspecified, not intractable, without status migrainosus (principal); D64.9 Anemia, unspecified; I10 Essential (primary) hypertension
CPT/HCPCS: 80053; 80061; 82306; 82607; 82728; 83735; 84443; 84481; 85025

== ENCOUNTER 2024-10-23 08:52 | Outpatient (CLI) | payer OTHER, SELFPAY ==
--- NOTE | 2024-10-23 09:00 | MR_ITS ---
FINAL REPORT TECHNIQUE: Multiplanar MR without contrast CLINICAL HISTORY: chronic migraines FINDINGS: Diffusion sequences show no signal abnormality to indicate acute infarct. No mass, hemorrhage or edema is seen. Ventricles are normal. Major vascular flow voids are intact. IMPRESSION: Unremarkable MR of the brain without contrast Reviewed, Interpreted and Dictated by Hal Santos MD Transcribed by Catherine Eng Authenticated and [facility]
== END 2024-10-23 23:59 | disposition home or self-care (01) ==
LOC: RAD 08:52
PROVIDERS: PCP Nurse Practitioner Family; Visit Provider Nurse Practitioner Family
DX: G43.909 Migraine, unspecified, not intractable, without status migrainosus (principal)
CPT/HCPCS: 70551

== ENCOUNTER 2024-11-08 15:28 | Emergency (ER) | payer OTHER, SELFPAY ==
[2024-11-08 15:39] VITALS: BP 135/85; PULSE 77; RESP 18; TEMP 36.7; O2SAT 98; BMI 69.4
[2024-11-08 16:15] LABS: Urine Pregnancy, HCG Qual. Negative (Negative)
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
[2024-11-08] MEDS: ACETAMINOPHEN 500MG TAB 1000 MG PO (16:31)
[2024-11-08] MEDS: diphenhydrAMINE 50MG/ML VIAL 25 MG IV (16:32)
[2024-11-08] MEDS: DEXAMETHASONE 4MG/ML 1ML VIAL 8 MG IV (16:32)
[2024-11-08] MEDS: LACTATED RINGERS 1000ML 1,000 ML 999 ML IV (16:33)
[2024-11-08] MEDS: METOCLOPRAMIDE HCL 10MG/2ML VIAL 5 MG IVP (16:34)
[2024-11-08] MEDS: KETOROLAC 30MG/ML VIAL 15 MG IV (16:55)
[2024-11-08 17:36] VITALS: BP 140/80; PULSE 80; RESP 18; TEMP 37.1; O2SAT 97
== END 2024-11-08 17:37 | disposition home or self-care (01) ==
PROVIDERS: Emergency Provider Emergency Medicine; PCP Nurse Practitioner Family
DX: G43.909 Migraine, unspecified, not intractable, without status migrainosus (principal)
CPT/HCPCS: 81025; 96361; 96374; 96375; 99284; J1100; J1200; J1885; J2765; J7120

== ENCOUNTER 2025-02-17 10:59 | Outpatient (CLI) | payer OTHER, SELFPAY ==
--- NOTE | 2025-02-17 11:00 | CA_ITS ---
APPROVED REPORT EXAM: Comprehensive 2D, Doppler, and color-flow Echocardiogram Director Of Research And Development: Jacqueline Akbar RVT Ht: 5 ft 6 in Wt: 426lbs BSA: 2.76 BP: 156/80 mmHg Indications: DYSPENA ON EXERTION,EDEMA,PALPITATIONS 2D Dimensions LA Volume 52.80 mL LA Volume Index 19.13 mL/m2 (M/F) 16-34 M-Mode Dimensions RVDd 2.94 cm (0.9-2.6) LA Diam 3.65 cm (1.9-4.0) LVDd 4.71 cm (3.5-5.7) LVDs 3.10 cm (3.5-5.7) IVSd 0.76 cm (0.6-1.1) PWd 0.76 cm (0.6-1.1) EF (Teich) 63.20% FS 34.20% EDV (Teich) 102.90 mL TAPSE 2.64 (<1.7) ESV (Teich) 37.90 mL LV Diastology E Decel Time 200 (160-240 msec) E/A Ratio 1.7 Aortic Valve PRICILA Index 1.33 cm2/m2 AoV Peak Jared. 151.0 (50-130 cm/s) AO Peak GR. 9.20 mmHg AO Mean GR. 5.10 (<5 mmHg) AO VTI 32.2 (18-25 cm) PRICILA (VTI) 3.75 (2.5-4.5 cm2) Mitral Valve MV E Max Jared. 116.0 (40-130 cm/s) MV A Velocity 68.0 (40-130 cm/s) E/A Ratio 1.71 MV PHT 59.0 ms Pulmonary Valve PV Peak Velocity 88.0 (50-150 cm/s) Left Ventricle The left ventricle is normal size. Left ventricular systolic function is normal. The left ventricular ejection fraction is within the normal range. There is normal left ventricular wall thickness. There is normal LV segmental wall motion. The left ventricular diastolic function is normal. LVEF is 55% Right Ventricle The right ventricle is normal size. The right ventricular systolic function is normal. Atria The left atrium size is normal. The right atrium size is normal. There is no color Doppler evidence of interatrial shunt. Aortic Valve The aortic valve opens well. There is no hemodynamically significant aortic valvular stenosis. No aortic regurgitation is present. Mitral Valve The mitral valve is normal in structure. No evidence of mitral valve stenosis. Trace mitral regurgitation is present. Tricuspid Valve The tricuspid valve leaflets are thin and pliable. Trace tricuspid regurgitation. There is insufficient TR jet to estimate RVSP. Pulmonic Valve The pulmonary valve is grossly normal in structure. Trace pulmonic valve regurgitation is present. Great Vessels The aortic root is normal in size. IVC is normal in size and collapses >50% with inspiration. Pericardium There is no pericardial effusion. Other Information Study Quality: Fair Conclusion Normal biventricular systolic function. No significant valvular stenosis or regurgitation. Electronically signed by : Haydee Contreras MD 02/18/2025 02:08:38
--- OUTSIDE RECORDS SUMMARY | 2025-02-17 11:02 | XMS_ITS | Clinical Summary ---
Author Organization [facility] Address [address] [place] [id number] Phone [email or web address] Care Team Providers Care Meal Cooker Name Role Phone Unavailable Primary Care Provider Unavailabl e Allergies No known active allergies Medications busPIRone (BUSPAR) 10 MG tablet 06/20/2021 Active PARoxetine (PAXIL) 20 MG tablet Take 20 mg by mouth 1 (one) time each day in the morning. Active Active Problems No known active problems Social History Tobacco Use Types Packs/Day Years Used Date Smoking Tobacco: Never Smokeless Tobacco: Never Intimate Partner Violence Answer Date R ecorded Insults You Not on file 10/28/2020 Threatens You Not on file 10/28/2020 Screams at You Not on file 10/28/2020 Physically Hurt Not on file 10/28/2020 Intimate Partner Violence Score Not on file 10/28/2020 Stress Answer Date Recorded Stress in your Life Not on file 05/20/2024 Dealing with Stress 3 05/20/2024 Comments Unknown Sex and Gender Information Value Date Recorded Sex Assigned at Not on file Legal Sex Female 12:16 PM CDT Gender Identity Not on file Sexual Orientation Not on file Last Filed Vital Signs Vital Sign Reading Time Taken Comments Blood Pressure 142/89 12/19/2018 3:17 PM EDT Pulse 69 07/02/2021 2:02 AM EST Temperature 36.1 C (96.9 F) 07/02/2021 2:02 AM EST Respiratory Rate - - Oxygen Saturation 98% 07/02/2021 2:02 AM EST Inhaled Oxygen Concentration - - Weight 172 kg (380 lb) 12/19/2018 3:17 PM EDT Height 167.6 cm (5' 6 ) 12/19/2018 3:17 PM EDT Body Mass Index 61.33 12/19/2018 3:17 PM EDT Plan of Treatment Health Maintenance Due Date Last Done Comments Cervical Cancer Screening Combo 1996 Dental Cleaning/Exam 1996 HIV Screening 1996 HPV / Cotest 1996 Hepatitis C Screening 1996 Pap Testing 1996 HPV Immunization (1 - 2-dose series) 2007 Annual Preventive Exam 2014 Hep B Infection Screening - Triple Screen 2014 Hepatitis B Immunization (1 of 3 - 19+ 3-dose series) 2015 Covid-19 Immunization (1 - 2 024-25 season) 2024 Influenza Immunization (#1) 2025 Tetanus Diphtheria and Pertu ssis Immunization (2 - Td or Tdap) 02/09/2030 02/10/2020 HIB Immunization Aged Out No longer e ligible based on patient's age to complete this topic Hepatitis A Immunization Aged Out No longer eligible based on patient's age to complete this topic Pneumococcal: Ped (0 to 5 Yr s) and At-Risk Member (6 to 64 Yrs) Aged Out No longer e ligible based on patient's age to complete this topic Polio Immunization Aged Out No longer eligible based on patient's age to complete this topic Varicella Immunization Aged Out No lo nger eligible based on patient's age to complete this topic Insurance OPT OUT NO COPAY NB
--- OUTSIDE RECORDS SUMMARY | 2025-02-17 11:02 | XMS_ITS | Clinical Summary ---
Author Organization Healthcare Address [address] [place] [id number] Care Team Providers Care Order Entry Specialist Name Role Phone Cruz Sosa MD Primary Care Provider [phone] Allergies No known active allergies Medications diclofenac (Voltaren) 1 % topical gel Place 1 application on the skin 2 (two) times a day. 100 g 1 Active methocarbamol (Robaxin) 500 MG tablet Take 1 tablet (500 mg total) by mouth 2 (two) times a day if needed for muscle spasms. 10 tablet 1 Active busPIRone (Buspar) 10 MG tablet TAKE 1 TABLET(10 MG) BY MOUTH TWICE DAILY 60 tablet 2 Active Active Problems No known active problems Immunizations Immunization Administration Dates Next Due Influenza, injectable, quadrivalent, preservativ e free 03/09/2020 Tdap 02/10/2020 Family History 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 Relation Name Comments Anxiety disorder Father Heart attack Father Hypertension Father Anxiety disorder Mother Relation Name Status Comments Father Mother Social History Tobacco Use Types Packs/Day Years Used Date Smoking Tobacco: Never Comments Unknown Sex and Gender Information Value Date Recorded Sex Assigned at Not on file Legal Sex Female 7:50 PM EDT Gender Identity Not on file Sexual Orientation Not on file Last Filed Vital Signs Vital Sign Reading Time Taken Comments Blood Pressure 127/83 01/03/2021 11:41 PM EDT Pulse 69 01/03/2021 11:41 PM EDT Temperature 36.6 C (97.8 F) 01/03/2021 11:41 PM EDT Respiratory Rate 18 01/03/2021 11:41 PM EDT Oxygen Saturation 99% 01/03/2021 11:41 PM EDT Inhaled Oxygen Concentration - - Weight 195 kg (430 lb) 01/03/2021 8:12 PM EDT Height 167.6 cm (5' 6 ) 01/03/2021 8:12 PM EDT Body Mass Index 69.4 01/03/2021 8:12 PM EDT Plan of Treatment Health Maintenance Due Date Last Done Comments [facility]-Depression Screening 1996 [facility]-Infant/Child/Adol SDOH Screenings 1996 [facility]-Hepatitis B Vaccines (2 of 3 - 3-dose series) 1996 1996 [facility]-Varicella Vaccines (1 of 2 - 13+ 2-dose series) 2009 HPV Vaccines (1 - 3-dose series) 2011 [facility]- SDOH Screenings 2014 [facility]-Adult SDOH Screenings 2014 [facility]-Pap Smear 2017 [id number] Vaccine ( season) 2024 07/28/2021, 10/24/2020 [facility]-Influenza Vaccine (#1) 03/17/202503/09, 03/12/2017 [facility]-DTaP,Tdap,and Td Vaccines (2 - Td or Tdap) 02/09/2030 02/10/2020 [facility]-Zoster Vaccines (1 of 2) 2046 [facility]-HIB Vaccines Aged Out No longer e ligible based on patient's age to complete this topic [facility]-Hepatitis A Vaccines Aged Out No longer eligible based on patient's age to complete this topic [facility]-IPV Vaccines Aged Out No longer e ligible based on patient's age to complete this topic [facility]-Pneumococcal Vaccine: Pediatrics (0 to 5 Years) and At-Risk Patients (6 to 49 Years) Aged Out No longer eligible b ased on patient's age to complete this topic [facility]-Rotavirus Vaccines Aged Out No lo nger eligible based on patient's age to complete this topic Insurance [employer]ICAID Care Teams Order Entry Specialist Relationship Specialty Start Date End Date Cruz Sosa MD [address] [address] PCP - General 01/03/21
--- OUTSIDE RECORDS SUMMARY | 2025-02-17 11:02 | XMS_ITS | Encounter Summary ---
Author Organization Healthcare Address [address] [place] [address] Care Team Providers Care Bariatric Surgeon Name Role Phone Cruz Sosa MD Primary Care Provider [phone] Reason for Visit * Reason Comments Med Refill Encounter Details Date Type Department Care Team (Late st Contact Info) Description 07/16/2021 Refill Obstetrics & Gynecology [address] [place] [address] Patsy Duong, MARKETING COMMUNICATIONS MANAGER, [facility] [address] [place] [address] Social History Tobacco Use Types Packs/Day Years Used Date Smoking Tobacco: Never Comments Unknown Sex and Gender Information Value Date Recorded Sex Assigned at Not on file Legal Sex Female 7:50 PM EDT Gender Identity Not on file Sexual Orientation Not on file documented as of this encounter Plan of Treatment Not on file documented as of this encounter Visit Diagnoses Not on filedocumented in this encounter Care Teams Bariatric Surgeon Relationship Specialty Start Date End Date Cruz Sosa MD [address] [address] PCP - General 01/03/21 documented as of this encounter
--- OUTSIDE RECORDS SUMMARY | 2025-02-17 11:02 | XMS_ITS | Encounter Summary ---
Author Organization Healthcare Address [address] [place] [address] Care Team Providers Care Pet Resort Concierge Name Role Phone Cruz Sosa MD Primary Care Provider [phone] Reason for Visit * Reason Comments Med Refill Encounter Details Date Type Department Care Team ([facility] st Contact Info) Description 01/17/2021 Refill [place] STUDENT FINANCIAL SERVICES COUNSELOR [address] [place] [address] Brittni Haddad MD [address] [place] [address] Social History Tobacco Use Types Packs/Day Years Used Date Smoking Tobacco: Never Comments Unknown Sex and Gender Information Value Date Recorded Sex Assigned at Not on file Legal Sex Female 7:50 PM EDT Gender Identity Not on file Sexual Orientation Not on file COVID-19 Exposure Response Date Recorded In the last month, have you been in contact with someone who was confirmed or suspected to have Coronavirus / COVID-19? No / Unsure 01/03/2021 8:12 PM EDT documented as of this encounter Miscellaneous Notes * Telephone Encounter - Patsy Duong - 01/19/2021 7:34 PM EDT I will refill for patient. * Telephone Encounter - Wilton Bowling - 01/19/2021 2:00 PM EDT Was last seen in Apr by Boo, you okay if we send documented in this encounter Plan of Treatment Not on file documented as of this encounter Visit Diagnoses Not on filedocumented in this encounter Care Teams Pet Resort Concierge Relationship Specialty Start Date End Date Cruz Sosa MD [address] [address] PCP - General 01/03/21 documented as of this encounter
== END 2025-02-17 23:59 | disposition home or self-care (01) ==
LOC: RT 10:59
PROVIDERS: PCP Nurse Practitioner Family; Visit Provider Nurse Practitioner Family
DX: I10 Essential (primary) hypertension (principal); R06.09 Other forms of dyspnea; R60.9 Edema, unspecified; R00.2 Palpitations
CPT/HCPCS: 93306

== ENCOUNTER 2025-05-12 11:26 | Outpatient (CLI) | payer OTHER, SELFPAY ==
[2025-05-12 17:49] LABS: Hepatitis C Ab Qual. W/ RFX NEGATIVE (Negative)
--- OUTSIDE RECORDS SUMMARY | 2025-05-13 09:55 | XMS_ITS | Clinical Summary ---
Author Organization [facility] Address [address] [place] [address] Phone [email or web address] Care Team Providers Care Puffer Tender Name Role Phone Unavailable Primary Care Provider [...] Dental Cleaning/Exam 1996 HIV Screening 1996 HPV only / HPV + Pap 1996 Hepatitis C Screening 1996 Pap only testing 1996 HPV Immunization (1 - 2-dose series) 2007 Annual Preventive Exam 2014 Hep B Infection Screening - Triple Screen 2014 Hepatitis B Immunization (1 of 3 - 19+ 3-dose series) 2015 Covid-19 Immunization (1 - 2 024-25 season) 2025 Influenza Immunization (#1) 2025 Tetanus Diphtheria and Pertu ssis Immunization (2 - Td or Tdap) 02/09/2030 02/10/2020 HIB Immunization Aged Out No longer e ligible based on patient's age to complete this topic Hepatitis A Immunization Aged Out No longer eligible based on patient's age to complete this topic Pneumococcal Immunization Aged Out No longer eligible based on patient's age to complete this topic Polio Immunization Aged Out No longer eligible based on patient's age to complete this topic Varicella Immunization Aged Out No lo nger eligible based on patient's age to complete this topic Insurance OPT OUT NO COPAY NB
--- OUTSIDE RECORDS SUMMARY | 2025-05-13 09:55 | XMS_ITS | Encounter Summary ---
Author Organization Healthcare Address [address] [place] [address] Care Team Providers Care Political Anthropologist Name Role Phone Cruz Sosa MD Primary Care Provider [phone] Reason for Visit * Reason Comments Med Refill Encounter Details Date Type Department Care Team ([facility] st Contact Info) Description 01/17/2021 Refill [place] SHOP LABORER [address] [place] [address] Brittni Haddad MD [address] [place] [address] Social History Tobacco Use Types [...] on filedocumented in this encounter Care Teams Political Anthropologist Relationship Specialty Start Date End Date Cruz Sosa MD [address] [address] PCP - General 01/03/21 documented as of this encounter
--- OUTSIDE RECORDS SUMMARY | 2025-05-13 09:55 | XMS_ITS | Encounter Summary ---
Author Organization Healthcare Address [address] [place] [address] Care Team Providers Care Medical Sales Consultant Name Role Phone Cruz Sosa MD Primary Care Provider [phone] Reason for Visit * Reason Comments Med Refill Encounter Details Date Type Department Care Team (Late st Contact Info) Description 07/16/2021 Refill Obstetrics & Gynecology [address] [place] [address] Patsy Duong, SOFTWARE DEVELOPMENT ADVISOR, [facility] [address] [place] [address] Social History Tobacco Use Types Packs/Day Years [...] on filedocumented in this encounter Care Teams Medical Sales Consultant Relationship Specialty Start Date End Date Cruz Sosa MD [address] [address] PCP - General 01/03/21 documented as of this encounter
--- OUTSIDE RECORDS SUMMARY | 2025-05-13 09:55 | XMS_ITS | Clinical Summary ---
Author Organization Healthcare Address [address] [place] [id number] Care Team Providers Care Supervisor Crack Off Name Role Phone Cruz Sosa MD Primary Care Provider [phone] Allergies No known active allergies Medications diclofenac [...] Date Last Done Comments [facility]-Depression Screening 1996 [facility]-/Child/Adol SDOH Screenings 1996 [facility]-Hepatitis B Vaccines (2 of 3 - 3-dose series) 1996 1996 [facility]-Varicella Vaccines (1 of 2 - 13+ 2-dose series) 2009 [facility]- SDOH Screenings 2014 [facility]-Adult SDOH Screenings 2014 [facility]-Pap Smear 2017 HPV Vaccines (1 - 3-dose SCDM series) 2023 [id number] Vaccine (3 - season) 2025 07/28/2021, 10/24/2020 [facility]-Influenza Vaccine (#1) 03/17/202503/09, 03/12/2017 [...] Insurance [employer] MEDICAID Care Teams Supervisor Crack Off Relationship Specialty Start Date End Date Cruz Sosa MD [address] [address] PCP - General 01/03/21
== END 2025-05-12 23:59 ==
LOC: LAB.DROPOF 05-13 09:43
PROVIDERS: PCP Nurse Practitioner Family; Visit Provider Nurse Practitioner Family
DX: Z11.4 Encounter for screening for human immunodeficiency virus [HIV] (principal); Z11.59 Encounter for screening for other viral diseases
CPT/HCPCS: 86803; 87389